=== PATIENT | female | born 1990 | race Caucasian/White ===

== ENCOUNTER → 2020-09-05 09:42 | Outpatient (BNVA) | payer SELFPAY | PROVIDERS: Family Provider Family Medicine; PCP Family Medicine; Visit Provider Nurse Practitioner Family | DX: R30.0 Dysuria (principal); R39.9 Unspecified symptoms and signs involving the genitourinary system | CPT/HCPCS: 81000 ==

== ENCOUNTER → 2020-10-01 16:32 | Outpatient (BNVA) | payer OTHER, SELFPAY | PROVIDERS: Family Provider Family Medicine; PCP Family Medicine; Visit Provider Emergency Medicine | DX: Z20.828 Contact with and (suspected) exposure to other viral communicable diseases (principal); R68.89 Other general symptoms and signs; R11.0 Nausea | CPT/HCPCS: 87635 ==

== ENCOUNTER → 2020-11-20 09:58 | Outpatient (BNVA) | payer OTHER, SELFPAY | PROVIDERS: Family Provider Family Medicine; PCP Family Medicine; Visit Provider Nurse Practitioner Family | DX: Z20.828 Contact with and (suspected) exposure to other viral communicable diseases (principal) | CPT/HCPCS: 87635 ==

== ENCOUNTER → 2021-09-25 11:52 | Outpatient (BNVA) | payer MEDICAID, SELFPAY | PROVIDERS: Family Provider Family Medicine; PCP Family Medicine; Visit Provider Emergency Medicine | DX: J02.9 Acute pharyngitis, unspecified (principal) | CPT/HCPCS: 87071; 87880 ==

== ENCOUNTER 2021-09-28 09:24 | Emergency (ER) | payer MEDICAID, OTHER, SELFPAY ==
[2021-09-28 09:31] VITALS: BP 152/90; PULSE 77; RESP 19; TEMP 37; O2SAT 99; BMI 32.5
[2021-09-28 10:07] VITALS: BP 125/74; PULSE 87; RESP 18; O2SAT 98
[2021-09-28 10:18] LABS: Add Urine Microscopic? NO; Charge for UA Resulting for Rev
[2021-09-28 10:21] LABS: Basophils # 0.1 10^3/uL (0.0-0.1); Basophils % 0.6 %; Eosinophils # 0.1 10^3/uL (0.0-0.8); Eosinophils % 0.7 %; Hematocrit 45.7 % (37.0-47.0); Hemoglobin 14.8 g/dL (11.5-15.3); Lymphocytes # 2.2 10^3/uL (0.8-4.8); Mean Corpuscular HGB Conc 32.4 g/dL (30.0-36.0); Mean Corpuscular Hemoglobin 28.8 pg (28.0-34.0); Mean Corpuscular Volume 88.9 fl (81-99); Mean Platelet Volume 11.2 fL (7.4-10.4); Monocytes # 0.3 10^3/uL (0.2-0.9); Monocytes % 3.4 %; Neutrophils % 69.1 %; Nucleated Red Blood Cells % 0 %; Platelet Count 264 10^3/cmm (130-400); Red Blood Count 5.14 10^6/uL (4.1-5.3); Red Cell Distribution Width 12.8 % (12.1-15.1); White Blood Count 8.3 10^3/uL (4.0-10.0)
[2021-09-28 10:26] VITALS: BP 116/85; BP 126/89; BP 129/82; PULSE 107; PULSE 78; PULSE 97
[2021-09-28 10:29] LABS: Bilirubin Urine Neg (Negative); Blood Urine Neg (Negative); Glucose Urine UA Norm (Normal); HCG Qualitative Urine. Negative (Negative); Ketones Urine Negative (Negative); Leukocyte Esterase Urine Negative (Negative); Nitrate Urine Negative (Negative); Protein Urine Neg (Negative); Specific Gravity, Urine 1.005 (1.005-1.030); Urine Appearance Clear (CLEAR); Urine Color Straw (Yellow); Urobilinogen Urine Norm (Negative); pH Urine 7 (5-7)
[2021-09-28] MEDS: sodium chloride 0.9% 1,000 ML 999 ML IV (10:29)
[2021-09-28 10:44] LABS: Alanine Aminotransferase 10 U/L (0-33); Albumin Level 4.3 g/dL (3.5-5.2); Alkaline Phosphatase 67 IU/L (35-105); Aspartate Amino Transferase 10 U/L (0-32); Blood Urea Nitrogen 6 mg/dL (6-20); Calcium 8.7 mg/dL (8.5-10.5); Carbon Dioxide 22 mmol/L (22-29); Chloride 104 mmol/L (98-107); Creatine Phosphokinase 54 U/L (26-192); Globulin 2.9 g/dL (1.3-4.6); Glomerular Filtration Rate 117.4 mL/min (90-130); Glucose 113 mg/dL (65-115); Osmolality Calculated 286 mOsm/kg (285-295); Sodium 139 mmol/L (136-145); Total Bilirubin 0.4 mg/dL (0.15-1.2); Total Protein 7.2 g/dL (6.6-8.7)
--- NOTE | 2021-09-28 11:02 | ECG_ITS ---
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 Measurements Intervals [place] Rate: 99 P: 58 TN: 127 QRS: 60 QRSD: 86 T: 34 QT: 340 QTc: 438 Interpretive Statements SINUS RHYTHM MINIMAL ST DEPRESSION [0.025+ mV ST DEPRESSION] No previous ECG available for comparison Electronically Signed On 09-28-2021 17:02:40 DISPOSAL WORKER by Michelet Waterman M.D. [email or web address] Paymentsmer[facility]ison[facility] companyProBinder/store/NU/[id number] f
[2021-09-28 11:26] LABS: SARS Covid-2 Antigen Negative (Negative)
--- NOTE | 2021-09-28 11:28 | XR_ITS ---
WS: [id number] Exam: XR chest 1V portable [id number] Date/Time of Exam: 09/28/2021 11:33 AM Reason For Exam: dyspnea/cough No priors. Findings: The lungs are clear and fully expanded. Costophrenic angles are sharp. No infiltrates. Bronchovascula r relief appears normal. Cardiac silhouette is unremarkable. Bony elements are intact. XR/XR chest 1V portable [id number] IMPRESSION: Unremarkable chest radiograph.
--- NOTE | 2021-09-28 11:28 | ED_ITS ---
HPI - General Adult General: Chief complaint: General Medical Stated complaint: WEAKNESS/LIGHT HEADED Time Seen by Provider: 09/28/21 09:28 History of Present Illness: HPI narrative: 30-year-old female presents emergency room complaining initially of onset of sore throat and itching ears. 3 days ago went to primary care doctor with persistent symptoms including diarrhea nausea reflux generalized weakness subjective fever and cough that had worsened significantly from the original symptoms back around [facility]. They were started on Zithromax. She continues to generally not feel well. Diarrhea has started to slow down already. She not previously had Covid that she knows of nor has she been immunized. Onset (ago): day(s) Location: chest (Congestion cough) Severity: mild Relieving factors: none Exacerbating factors: none Associated symptoms: Reports cough, decreased appetite, dyspnea, fevers/chills, headache(s), malaise, nausea, short of breath and weakness; Deny chest pain, confusion, diaphoresis, rash, palpitations, seizures, syncope or vomiting Treatments prior to arrival: other (Azithromycin) Review of Systems Const: Reports: malaise; Denies: diaphoresis ENMT: Denies: throat pain, ear or mastoid pain, nasal discharge or nasal congestion Card: Denies: chest pain, palpitations or syncope Resp: Reports: dyspnea GI: Reports: nausea; Denies: vomiting : Denies: flank pain, difficulty voiding, dysuria, urinary frequency or urinary urgency Skin/Breast: Denies: rash Neuro: Reports: headache(s); Denies: confusion PFSH ED PFSH: Family History Other Diabetes Hypertension Stroke Denies family history of CAD (coronary artery disease) Chronic kidney disease (CKD) Social History Smoking and tobacco status: current every day smoker cigarettes Packs smoked per day: 0.5 Quit status (tobacco): not considering quitting Second hand smoke exposure: Yes Alcohol intake: current Alcohol intake frequency: holidays/special occasions only Desire information about alcohol rehabilitation?: No Desire information about substance/drug rehabilitation?: No History of recent travel: No Current gender identity: Female Physical Exam Const: COMMON NORMALS: no acute distress GENERAL APPEARANCE: cooperative and comfortable ORIENTATION/CONSCIOUSNESS: Yes awake, Yes oriented to person, Yes oriented to place and Yes oriented to time HENMT: COMMON NORMALS: normocephalic, atraumatic and hearing grossly normal bilaterally HEAD & SCALP: normocephalic and atraumatic Neck/C-Spine: COMMON NORMALS: full ROM, no lymphadenopathy, supple and no JVD Resp: COMMON NORMALS: normal respiratory effort, No retractions, No use of accessory muscles and clear to auscultation bilaterally AUSCULTATION: clear to auscultation bilaterally Cardio: COMMON NORMALS: no JVD, regular rate, regular rhythm and No murmurs present (Cardio) RATE: regular rate RHYTHM: regular rhythm GI: COMMON NORMALS: Soft to palpation and No hepatosplenomegaly present AUSCULTATION: Yes normoactive bowel sounds PALPATION: Yes Soft to palpation, No Tenderness to palpation present (GI), No Guarding due to palpation present (GI) and Yes No hepatosplenomegaly present Extremity: COMMON NORMALS: normal to inspection, capillary refill normal, no clubbing, cyanosis or edema, no calf tenderness and no pedal edema Neuro: SENSORIUM/ORIENTATION: Yes oriented to person, Yes oriented to place and Yes oriented to time Skin: COMMON NORMALS: no rashes or lesions noted GENERAL SKIN EXAM: no rashes or lesions noted Course Vital Signs: Vital signs: Vital Signs Temperature 98.6 F 09/28/21 09:31 Pulse Rate 67 09/28/21 12:26 Respiratory Rate 18 09/28/21 12:26 Blood Pressure 134/71 09/28/21 12:26 Pulse Oximetry 98 09/28/21 12:26 MDM - General Adult MDM Narrative: Medical decision making narrative: Labs and imaging reviewed. Clinically suspect she does have Covid. Waiting for the PCR. Recommend discharge home with albuterol and Medrol Dosepak. She declined Medrol Dosepak says it causes anxiety issues. She has been using Benadryl at at bedtime for sleep recommended she probably instead use cetirizine for allergy symptoms discussed with her primary care something else for sleep. She had asked about continuing to use Benadryl using more often for the symptoms would not recommend that at this time. Any worsening problems return to the emergency room. Lab Data: Labs: Lab Results 09/28/21 09/28/21 09/28/21 09:50 09:50 10:01 WBC 8.3 10^3/uL 10^3/ uL (4.0-10.0) RBC 5.14 10^6/uL 10^6 /uL (4.1-5.3) Hgb 14.8 g/dL g/dL (11.5-15.3) Hct 45.7 % % (37.0-47.0) MCV 88.9 fl fl (81-99) MCH 28.8 pg pg (28.0-34.0) MCHC 32.4 g/dL g/dL (30.0-36.0) RDW 12.8 % % (12.1-15.1) Plt Count 264 10^3/cmm 10^3 /cmm (130-400) MPV 11.2 fL H fL (7.4-10.4) Neut % (Auto) 69.1 % % Lymph % (Auto) 26.0 % % [place] % (Auto) 3.4 % % Eos % (Auto) 0.7 % % Baso % (Auto) 0.6 % % Neut # (Auto) 5.70 10^3/uL 10^3 /uL (1.8-7.7) Lymph # (Auto) 2.2 10^3/uL 10^3/ uL (0.8-4.8) [place] # (Auto) 0.3 10^3/uL 10^3/ uL (0.2-0.9) Eos # (Auto) 0.1 10^3/uL 10^3/ uL (0.0-0.8) Baso # (Auto) 0.1 10^3/uL 10^3/ uL (0.0-0.1) Nucleated RBC % (a uto) 0 % % Nucleated RBCs # 0.0 /100WBC /100W BC Sodium Potassium Chloride Carbon Dioxide Anion Gap BUN Creatinine GFR Calculation Glucose Calculated Osmolal ity Calcium Total Bilirubin AST ALT Alkaline Phosphata se Creatine Kinase Total Protein Albumin Globulin HCG, Qual Negative (Negative) Urine Color Straw (Yellow) Urine Appearance Clear (CLEAR) Urine pH 7 (5-7) Ur Specific Gravit y 1.005 (1.005-1.030) Urine Protein Neg (Negative) Urine Glucose (UA) Norm (Normal) Urine Ketones Negative (Negative) Urine Blood Neg (Negative) Urine Nitrate Negative (Negative) Urine Bilirubin Neg (Negative) Urine Urobilinogen Norm mg/dL mg/dL (Negative) Ur Leukocyte [place] ase Negative (Negative) SARS-CoV-2 Ag (Rap id) 09/28/21 09/28/21 10:01 10:30 WBC RBC Hgb Hct MCV MCH MCHC RDW Plt Count MPV Neut % (Auto) Lymph % (Auto) [place] % (Auto) Eos % (Auto) Baso % (Auto) Neut # (Auto) Lymph # (Auto) [place] # (Auto) Eos # (Auto) Baso # (Auto) Nucleated RBC % (a uto) Nucleated RBCs # Sodium 139 mmol/L mmol/L (136-145) Potassium 4.0 mmol/L mmol/L (3.5-5.1) Chloride 104 mmol/L mmol/L (98-107) Carbon Dioxide 22 mmol/L mmol/L (22-29) Anion Gap 17.0 (5-19) BUN 6 mg/dL mg/dL (6-20) Creatinine 0.6 mg/dL mg/dL (0.5-0.9) GFR Calculation 117.4 mL/min mL/m in (90-130) Glucose 113 mg/dL mg/dL (65-115) Calculated Osmolal ity 286 mOsm/kg mOsm/ kg (285-295) Calcium 8.7 mg/dL mg/dL (8.5-10.5) Total Bilirubin 0.4 mg/dL mg/dL (0.15-1.2) AST 10 U/L U/L (0-32) ALT 10 U/L U/L (0-33) Alkaline Phosphata se 67 IU/L IU/L (35-105) Creatine Kinase 54 U/L U/L (26-192) Total Protein 7.2 g/dL g/dL (6.6-8.7) Albumin 4.3 g/dL g/dL (3.5-5.2) Globulin 2.9 g/dL g/dL (1.3-4.6) HCG, Qual Urine Color Urine Appearance Urine pH Ur Specific Gravit y Urine Protein Urine Glucose (UA) Urine Ketones Urine Blood Urine Nitrate Urine Bilirubin Urine Urobilinogen Ur Leukocyte [place] ase SARS-CoV-2 Ag (Rap id) Negative (Negative) Discharge Plan Discharge Patient Disposition: Home Clinical Impression: Viral URI with cough Condition: Stable Prescriptions: New Medrol (Delvis) 4 mg tablets,dose pack See Rx Instructions .ROUTE .COMPLEX Qty: 21 RF: 0 No Action [id number] [Bromfed DM] 2-30-10 mg/5 mL syrup 7.5 ml PO Q6H PRN (Reason: cold symptoms) Qty: 160 RF: 0 Benadryl 25 mg Capsule 25 mg PO BEDTIME PRN (Reason: Sleep) RF: 0 ibuprofen 200 mg Tablet 400 mg PO BEDTIME PRN (Reason: Pain) RF: 0 albuterol sulfate 90 mcg/actuation Hfa Aerosol Inhaler 2 puff inhalation Q6H PRN (Reason: Shortness Of Breath) RF: 0 Mirena 20 mcg/24 hours (6 yrs) 52 mg Intrauterine Device See Rx Instructions .ROUTE .COMPLEX RF: 0 azithromycin 250 mg tablet See Rx Instructions PO .COMPLEX RF: 0 Discharge Orders: Discharge ED (Routine); Ordered 09/28/21 Ordered By: Festus Guzman Discharge Diet: Usual diet Discharge Activity: Increase activity as tolerated Patient Instructions: Opioid Safety Coding Level of Care Code ED Revenue Integrity Analyst for Jacob Fwd Exam Comprehensive
[2021-09-28 12:26] VITALS: BP 134/71; PULSE 67; RESP 18; O2SAT 98
[2021-09-29 14:15] LABS: Coronavirus Test Green County Not Detected
--- NOTE | 2021-09-30 15:47 | PC.NURSE ---
Patient notified of negative COVID-19 test result
== END 2021-09-28 12:17 | disposition home or self-care (01) ==
PROVIDERS: Emergency Provider Family Medicine
DX: J06.9 Acute upper respiratory infection, unspecified (principal); F17.210 Nicotine dependence, cigarettes, uncomplicated; Z20.822 Contact with and (suspected) exposure to COVID-19
CPT/HCPCS: 71045; 80053; 81003; 81025; 82550; 85025; 87426; 87635; 93005; 96360; 99283; J7030

== ENCOUNTER → 2021-12-26 10:30 | Outpatient (BNVA) | payer MEDICAID, SELFPAY | PROVIDERS: Visit Provider Emergency Medicine | DX: J02.9 Acute pharyngitis, unspecified (principal); J01.90 Acute sinusitis, unspecified; B96.89 Other specified bacterial agents as the cause of diseases classified elsewhere | CPT/HCPCS: 87071; 87880 ==

== ENCOUNTER → 2022-05-01 16:38 | Outpatient (BNVA) | payer MEDICAID, SELFPAY | PROVIDERS: Visit Provider Emergency Medicine | DX: J06.9 Acute upper respiratory infection, unspecified (principal); J02.9 Acute pharyngitis, unspecified | CPT/HCPCS: 87071; 87880 ==

== ENCOUNTER → 2022-05-22 10:24 | Outpatient (BNVA) | payer MEDICAID, SELFPAY | PROVIDERS: PCP Family Medicine; Visit Provider Emergency Medicine | DX: J02.9 Acute pharyngitis, unspecified (principal); R09.82 Postnasal drip | CPT/HCPCS: 87071; 87880 ==

== ENCOUNTER → 2022-09-07 09:19 | Outpatient (BNVA) | payer MEDICAID, SELFPAY | PROVIDERS: PCP Family Medicine; Visit Provider Nurse Practitioner Family | DX: J02.9 Acute pharyngitis, unspecified (principal); J02.0 Streptococcal pharyngitis | CPT/HCPCS: 87071; 87880 ==

== ENCOUNTER → 2023-07-22 09:56 | Outpatient (BNVA) | payer MEDICAID, SELFPAY | PROVIDERS: PCP Family Medicine; Visit Provider Emergency Medicine | DX: M25.511 Pain in right shoulder (principal); M77.11 Lateral epicondylitis, right elbow | CPT/HCPCS: 73030 ==

== ENCOUNTER → 2024-03-26 08:50 | Outpatient (BNVA) | payer MEDICAID, SELFPAY | PROVIDERS: PCP Family Medicine; Visit Provider Podiatrist Foot & Ankle Surgery | DX: M79.671 Pain in right foot (principal); M76.821 Posterior tibial tendinitis, right leg | CPT/HCPCS: 73610; 73630 ==

== ENCOUNTER → 2024-04-13 09:22 | Outpatient (BNVA) | payer MEDICAID, SELFPAY | PROVIDERS: PCP Family Medicine; Referring Provider Nurse Practitioner Family; Visit Provider Physician Assistant | DX: G56.01 Carpal tunnel syndrome, right upper limb | CPT/HCPCS: 73080 ==

== ENCOUNTER → 2024-05-11 10:29 | Outpatient (BNVA) | payer MEDICAID, SELFPAY | PROVIDERS: PCP Nurse Practitioner Family; Visit Provider Obstetrics & Gynecology | DX: Z30.431 Encounter for routine checking of intrauterine contraceptive device (principal); R10.2 Pelvic and perineal pain; N83.201 Unspecified ovarian cyst, right side | CPT/HCPCS: 76830 ==

== ENCOUNTER 2024-06-27 10:43 | Day surgery (SDC) | payer MEDICAID, SELFPAY ==
[2024-06-27] VITALS (7 sets, daily range): BP systolic 92–135; BP diastolic 69–93; PULSE 62–85; RESP 12–16; TEMP 3.2–37.8; O2SAT 90–97
[2024-06-27 12:20] LABS: OR HCG Qualitative Urine Negative (Negative)
--- NOTE | 2024-06-27 12:40 | P.ANESASSM_ITS ---
Pre-Anesthetic Assessment Height/Weight: Height 5 ft 1 in Operation Date: 06/27/24 13:05 Proposed Procedures p Carpal Tunnel Release(Right) - Nick Pinal, DO s [place] Release(Right) - Nick Pinal, DO s Cubital Tunnel Release(Right) - Nick Jorden, DO s possible Ulnar Nerve Transposition(Right) - Nick Pinal, DO Social Tobacco and No alcohol Exam alert, oriented x 3, clear to auscultation bilaterally and regular rate & rhythm Airway Submandibular: within normal limits Cervical ROM: within normal limits Mallampati: Class III Dentition: other (Poor dentition) Anesthetic Plan ASA status: 2 Anesthesia: MAC Other: No prior issues with anesthesia NPO since midnight Current smoker, no inhalers Denies any cardiac history test negative Prior EKG showing sinus rhythm Peripheral nerve block discussed including complications. Patient is concerned about possible phrenic block and decreased sensation of taking a deep breath. However, patient would like to proceed with peripheral nerve block at this time. Plan for MAC anesthesia with PNB Medications/Allergies Home Medications Medication Instructions Recorded Confirmed Last Taken Type ibuprofen 200 mg tablet 400 mg PO BEDTIME PRN Pain 09/28/21 06/26/24 Unknown History levonorgestrel 21 mcg/24 hr (up to See Rx Instructions .Route .COMPLEX 09/28/21 06/26/24 07/24/17 History 8 years) 52 mg intrauterine device (Mirena) ibuprofen 600 mg tablet 600 mg PO Q8H PRN pain #30 tabs 05/01/22 06/26/24 Unknown Rx bupropion HCl 150 mg tablet,12 hr 150 mg PO DAILY 07/22/23 06/26/24 Unknown History sustained-release (Wellbutrin SR) hydroxyzine HCl 10 mg tablet 10 mg PO TID PRN Pain 07/22/23 06/26/24 06/25/24 History fluticasone propionate 50 2 spray intranasal DAILY 06/27/24 06/27/24 06/27/24 History mcg/actuation nasal spray,suspension ondansetron 4 mg disintegrating 4 mg PO Q8H PRN nausea and 06/27/24 Unknown Rx tablet vomiting 3 days #9 tabs tramadol 50 mg tablet 50 mg PO Q6H PRN pain #20 tabs 06/27/24 Unknown Rx Allergies Allergy/AdvReac Type Severity Reaction Status Date / Time hydrocodone Allergy Mild ALGY-HIVES Verified 05/10/24 14:16 Penicillins Allergy Mild ALGY-HIVES Verified 05/10/24 14:16 clindamycin Allergy Unknown Verified 05/10/24 14:16 [facility] Anesthesia Family History Other Diabetes Hypertension Stroke Denies family history of CAD (coronary artery disease) Chronic kidney disease (CKD) Social History Smoking and tobacco/nicotine status: current every day tobacco/nicotine user cigarettes Packs smoked per day: 0.5 Quit status (tobacco/nicotine): not considering quitting Second hand smoke exposure: Yes Alcohol intake: current Alcohol intake frequency: holidays/special occasions only Substance/Drug Use: never Current gender identity: Female Female Reproductive History Spontaneous abortions: No Data Anesthesia Cardiac Studies: No Data to Display
[2024-06-27] MEDS: sodium chloride 0.9% 1,000 ML 30 ML IV (12:44)
[2024-06-27] MEDS: ketorolac 30 mg/mL INJ IVP (12:46)
[2024-06-27] MEDS: acetaminophen 1,000 MG/100 ML PIGGYBACK 400 MG IV (12:46)
[2024-06-27] MEDS: scopolamine 1.5 Patch 1 PATCH TRANSDERMA (12:49)
[2024-06-27] MEDS: vancomycin 1,500 MG/300 ML PIGGYBACK 200 MG IV (12:52)
--- NOTE | 2024-06-27 13:00 | W.PM.OPSFHP ---
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 Guyon[place] canal PREOP DIAGNOSIS: Right carpal tunnel syndrome, cubital tunnel syndrome, right ulnar ne PLANNED PROCEDURE: Operation Date: 06/27/24 13:05 Proposed Procedures p Carpal Tunnel Release(Right) - Nick Wilbarger, DO s [place] Release(Right) - Nick Wilbarger, DO s Cubital Tunnel Release(Right) - Nick Jorden, DO s possible Ulnar Nerve Transposition(Right) - Nick Wilbarger, DO Medications/Allergies* Home Medications Medication Instructions Recorded Confirmed Type ibuprofen 200 mg tablet 400 mg PO BEDTIME PRN Pain 09/28/21 06/26/24 History levonorgestrel 21 mcg/24 hr (up to See Rx Instructions .Route .COMPLEX 09/28/21 06/26/24 History 8 years) 52 mg intrauterine device (Mirena) bupropion HCl 150 mg tablet,12 hr 150 mg PO DAILY 07/22/23 06/26/24 History sustained-release (Wellbutrin SR) hydroxyzine HCl 10 mg tablet 10 mg PO TID PRN Pain 07/22/23 06/26/24 History fluticasone propionate 50 2 spray intranasal DAILY 06/27/24 06/27/24 History mcg/actuation nasal spray,suspension Allergies/Adverse Reactions Allergy/AdvReac Type Severity Reaction Status Date / Time hydrocodone Allergy Mild ALGY-HIVES Verified 05/10/24 14:16 Penicillins Allergy Mild ALGY-HIVES Verified 05/10/24 14:16 clindamycin Allergy Unknown Verified 05/10/24 14:16 Current Medications: Generic Name Dose Route Start Last Admin Trade Name Freq PRN Reason Stop Dose Admin Vancomycin HCl 1,500 mg in 300 mls @ 200 mls/hr 06/27/24 12:10 06/27/24 12:52 Vancocin IV 06/27/24 13:39 200 mls/hr ONCE ONE Administration Protocol Sodium Chloride 1,000 mls @ 30 mls/hr 06/27/24 12:30 06/27/24 12:44 Sodium Chloride 0.9% IV 30 mls/hr .Q24H PADMINI Administration Pertinent History/Comorbid Conditions* Family History (Updated 02/23/20 @ 09:16 by Poala English LPN) Diabetes Hypertension Stroke Denies family history of CAD (coronary artery disease) Chronic kidney disease (CKD) Social History Smoking and tobacco/nicotine status: current every day tobacco/nicotine user cigarettes Packs smoked per day: 0.5 Quit status (tobacco/nicotine): not considering quitting Second hand smoke exposure: Yes Alcohol intake: current Alcohol intake frequency: holidays/special occasions only Substance/Drug Use: never Current gender identity: Female Pertinent Exam Findings alert, oriented x 3, operative site marked and procedure specific exam findings Please refer to detailed orthopedic examination on 05/10/2024 listed below: bilateral Hand exam-positive Tinel's and positive Phalen's test. She has no thenar atrophy and no thenar muscle weakness. Full range of motion in fingers and wrist and fingers are warm and well-perfused with normal cap refill under 2 seconds. Radial pulse 2+, no intrinsic muscle weakness noted. Right Elbow exam-Positive Tinel's test Left Elbow exam- positive Tinel's test Patient's examination of the right upper extremity was performed by myself patient does have positive Tinel's over the elbow as well as positive elbow flexion test does have positive Tinel's over the carpal tunnel as well as over Guyon's canal as well as exacerbating symptoms with median nerve compression test at the wrist as well as ulnar nerve compression test over Guyon's canal. Patient does have early thenar weakness and subtle intrinsic weakness appreciated on examination but no atrophy noted. Recommendations Surgery/Procedure today Other Plans: Plan to proceed to the OR today for right carpal tunnel release, right wrist Guyon's canal release, right cubital tunnel release with possible nerve transposition. Patient understands the ins and outs procedure the risk benefits complication alternatives of surgery and through shared decision make elects proceed with surgical intervention. All questions answered at this time. Will proceed to the OR today. Coding Level of Care Code Acute Code for Jacob Wallace
--- NOTE | 2024-06-27 13:16 | ANES.PROC ---
Anesthesia Procedures Procedure/Date: 06/27/24 Nerve Block ^: Nerve Block 1: Main Anesthesia: other Time Out Performed: Yes Consent: requested by attending/covering physician and from patient Nerve block location: supraclavicular Anesthesia monitors applied: pulse oximetry, EKG, BP cuff and oxygen Nerve block position: supine Anesthetic Used: ropivicaine 0.5% Amount of anesthesia used (mL): 25 Ultrasound used to: recognize landmarks and in supraclavicular region Nerve Stimulator Used?: Yes Interscalene/Femoral BLK: other needle (pjunk) Injection: neg aspiration of heme Patient Tolerated Procedure: well Complications: none Additional Comments: decadron 4mg added
[2024-06-27] MEDS: ROPivacaine 0.5% SDV 30 mL 50 MG INJECTION (14:01)
[2024-06-27] MEDS: lidocaine-epi 1% 20 mL INJ 10 ML INJECTION (14:01)
--- NOTE | 2024-06-27 14:43 | P.BOP_ITS ---
Date of Procedure: 06/27/2024 Surgeon: Nick Leonardo DO Snath Handle Assembler(s): Deon Leonardo PA-C Procedure(s) performed: Right carpal tunnel release Right cubital tunnel release Right ulnar nerve release at the wrist (Guy[place]'s canal release) Findings of the procedure(s): Patient is found to have ulnar nerve entrapment at the wrist and elbow as well as right carpal tunnel syndrome. Patient underwent procedure as planned without issues or complications placed in a volar splint to protect the wrist incision with a soft dressing to the elbow taken to PACU in stable condition will follow-up in 2 weeks. 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
--- NOTE | 2024-06-27 14:47 | P.OP_ITS ---
Operative Report Date of procedure: June 27, 2024 Surgeon: Nick Leonardo DO Memorial Designer: Deon Leonardo PA-C: PA was necessary for assistance in this case with hand positioning to execute the procedure, retraction and protection of neurovascular structures as well as to assist with wound closure and dressing application. Procedure: Preoperative diagnosis? Right? 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 45 minutes IV fluids: 800mL Complications: None Findings: See operative report narrative Condition: stable Disposition: same day Brief History: Patient's been seen and worked up in the outpatient setting and findings consistent with preoperative diagnosis.? Patient has? Right Carpal Tunnel Syndrome,Right ulnar entrapment at?guyons?canal, Right cubital tunnel syndrome? which has been worked up in the outpatient setting has physical exam findings consistent with this.? Patient's nerve study from previous outside facility was allegedly read as normal.? Exam findings consistent with preoperative diagnosis.? Patient's failed conservative treatment.? As result through shared decision making agreed to proceed with Right carpal tunnel release , Right ulnar nerve release at the wrist (guyons canal) and Right cubital tunnel release. We talked about tx options as nonoperative and operative intervention.? Understands risk benefits complication alternatives surgical nonsurgical treatment options.? Understanding? risks pt agrees to proceed with surgical intervention. Consent obtained. Procedure: Patient seen evaluate in the preoperative holding area.? Consent was reviewed and signed with patient.? Correct extremity marked.? Patient seen evaluated by anesthesia department once cleared for surgery was then taken back to the operative suite placed in supine position all bony prominences well-padded patient properly secured to bed.? Right upper extremity placed onto armboard.? Nonsterile tourniquet applied Right upper arm.? Patient then underwent anesthesia per the anesthesia department.? Patient's Right upper extremity was then prepped and draped in standard orthopedic fashion.? Final timeout performed.? Patient received appropriate preoperative antibiotics. Esmarch was used exsanguinate the Right upper extremity.? Tourniquet was insufflated to 250 mmHg. I started with my release of the ulnar nerve at the wrist.? An extensive laterally based palmar incision that extended proximal past the wrist crease with a Alyx incision was made directly over?Guyon's canal.? At this point in time incision was made between the Pisa form and hamate to follow neurovascular bundle of?Guyon's canal.? sharp scalpel incision was subsequently made through skin and then I switched to Littler dissection scissors.? At this point in time I dissected down over top?guyons?canal release the brevis muscle belly along the hypothenar region to obtain access into?Guyon's canal.? Thick band of fascia was noted proximally just proximal to the wrist crease this was released and made sure there was complete decompression of the ulnar nerve proximally just prior to?Guyon's canal subsequently released?guyon?canal and direct visualization with sharp scalpel excision as well as Littler dissection scissors with care utilizing my anesthetic assistant to protect the neurovascular bundle.? At this point in time I continued to perform release of the fascia/the roof of?Guyon's canal all the way to its most distal extent and the nerve was found to be completely free and untethered.? I then in order to perform release of the deep motor branch I then mobilized my dissection around the ulnar nerve and identified the deep motor branch as it courses towards the underneath fascia connected with the hamate.? I then utilized dissection scissors and under direct visualization completed my release carefully of the fascial bands tethering over top of the deep motor branch.? At this point in time the ulnar nerve was completely decompressed through?Guyon's canal and? ulnar nerve had complete laxity with no areas of entrapment or tethering. No masses were noted within the contents of the?guyons?canal.? This completed the ulnar nerve release at the wrist. Next I then subsequently visualized from the ulnar aspect of the carpal tunnel.? Identified the distal extent as well as proximal extent into the antebrachial fascia.? As result approaching the carpal tunnel from the ulnar position just above the hook of the hamate made an incision through thickened Transverse carpal ligament.? It was noted there was significant entrapment of the median nerve.? I then switched to Littler dissection scissors to complete my dissection and release distally with care to protect neurovascular structures distally.? The tendons were healthy within the carpal tunnel.? No masses were noted.? I then carried my dissection proximally utilizing retraction by my anesthetic assistant as well as direct visualization with loupe magnification identify the proximal extent of the carpal tunnel and release this to its entirety as well as identified the median nerve and released the tethering of the antebrachial fascia proximally past the wrist crease into the distal aspect of the forearm with no further evidence of median nerve entrapment.? The median nerve overall showed signs of compression and inflammation irritation but overall appeared healthy.?? Next marked out the landmarks of the Right elbow of the medial epicondyle and olecranon and made a curvilinear incision following the course of the ulnar nerve at the medial aspect of the elbow.? Sharp scalpel incision was made through skin and subcutaneous tissue.? Next I switched to Littler dissection scissors and spread in plane of the medial antebrachial cutaneous nerve branching which was protected throughout this part of the dissection.? Then I directly came down over the fascia and identified the 2 heads of the FCU fascia and split this in the middle and subsequently identified ulnar nerve distally.? This was then completely released distally under direct visualization and loupe magnification.? Once the nerve was then identified I then subsequently tracked this proximally and released this through Renner's ligament as well as complete decompression of the nerve proximally all the way past the intermuscular septum.? The nerve was completely released and decompressed both proximally and distally.? Ulnar nerve neurolysis performed and completed both proximally and distally with dissection scissors.? I then took the elbow through range of motion and there was no instability or subluxating of the ulnar nerve.? This completed?cubital?tunnel release.? ?Next the wound bed was thoroughly irrigated.? Tourniquet was deflated.? Hemostasis was satisfactory.? ?The incision was then closed in standard interrupted mattress fashion.? Dressing was Xeroform 4 x 4's ABD Curlex soft roll and an Shaan wrap has a bulky soft dressing and volar splint.? Patient was then awakened from anesthesia and taken to PACU in stable condition. Disposition: Patient taken to PACU in stable condition recovering well.? Patient will receive appropriate discharge instructions as well as pain medication postoperatively.? We will follow-up with me in the office in 2 weeks.? Patient understands agrees with current plan.? All questions answered.? pt understands if any questions or concerns and contact the office for follow-up appointment.
--- NOTE | 2024-06-27 14:54 | P.PCN_ITS ---
PACU note Narrative: Patient is a 33-year-old female that just underwent a right carpal tunnel release and right Guyon's canal release and right cubital tunnel release. Patient transferred to PACU in stable condition. Pain is well controlled. Dressing on hand is dry and in place. Patient's fingers are warm and well- perfused. normal cap refill under 2 seconds. Unable to assess sensation and motor due to residual block. Exam: awake Disposition: discharged
--- NOTE | 2024-06-27 15:40 | ANE.PACU2 ---
Inpatient post-anesthesia follow up: Airway intact: Yes Vital signs: Temperature 97.2 F Pulse Rate 72 Respiratory Rate 16 Blood Pressure 135/90 Pulse Oximetry 96 Oxygen Delivery Me thod Room Air Oxygen Flow Rate 6 Fraction of Inspir ed Oxygen Hydration adequate: Yes Nausea and vomiting: No Pain level: 1 Mental status: Baseline
== END 2024-06-27 15:40 | disposition home or self-care (01) ==
PROVIDERS: Student in an Organized Health Care Education/Training Program; PCP Nurse Practitioner Family; Visit Provider Student in an Organized Health Care Education/Training Program
PROC: (CPT 64721; principal; 2024-06-27 13:05)
PROC: (CPT 64719; 2024-06-27 13:05)
PROC: (CPT 64718; 2024-06-27 13:05)
DX: G56.01 Carpal tunnel syndrome, right upper limb (principal); G56.21 Lesion of ulnar nerve, right upper limb; F17.210 Nicotine dependence, cigarettes, uncomplicated
CPT/HCPCS: 64718; 64719; 64721; 81025; J0131; J1885; J2704; J2795; J3010; J3370; J7030

== ENCOUNTER 2024-12-15 11:42 | Emergency (ER) | payer MEDICAID, SELFPAY ==
[2024-12-15 11:47] VITALS: BP 136/81; PULSE 113; RESP 16; TEMP 36.8; O2SAT 96; BMI 41.5
--- NOTE | 2024-12-15 12:57 | W.ED.BACK ---
HPI - Back Pain/Injury General: Chief Complaint: Back Pain/Injury Stated Complaint: back pain / adm. pain Time Seen by Provider: 12/15/24 12:55 History of Present Illness: 34-year-old female presents emergency room with complaint of back pain radiating down into the lower abdomen. Its mostly on her right side. It began after she fell a few days ago she had to strain her back had some discomfort adjacent your primary care doctor was given medications that seem to be improving now she is having more discomfort again. She is able to move around no radiation of pain into her lower extremities no fecal incontinence or urinary retention. No other trauma Associated symptoms: Reports abdominal pain; Deny chills, dysuria, fever(s) or urinary urgency Related Data Home Medications ?Medication ?Instructions ?Recorded ?Confirmed ibuprofen 200 mg tablet 400 mg PO BEDTIME PRN Pain 09/28/21 12/01/24 levonorgestrel 21 mcg/24 hr (up to See Rx Instructions .Route .COMPLEX 09/28/21 12/01/24 8 years) 52 mg intrauterine device (Mirena) hydroxyzine HCl 10 mg tablet 10 mg PO TID PRN Pain 07/22/23 12/01/24 fluticasone propionate 50 2 spray intranasal DAILY 06/27/24 12/01/24 mcg/actuation nasal spray,suspension bupropion HCl 150 mg 24 hr tablet, mg PO 09/28/24 12/01/24 extended release metformin 500 mg tablet mg PO 09/28/24 12/01/24 Previous Rx's ?Medication ?Instructions ?Recorded ibuprofen 600 mg tablet 600 mg PO Q8H PRN pain #30 tabs 05/01/22 Allergies Allergy/AdvReac Type Severity Reaction Status Date / Time hydrocodone Allergy Mild ALGY-HIVES Verified 09/28/24 09:34 Penicillins Allergy Mild ALGY-HIVES Verified 09/28/24 09:34 clindamycin Allergy Unknown Verified 09/28/24 09:34 Review of Systems Const: Denies: fever(s) or chills Card: Denies: chest pain Resp: Denies: dyspnea GI: Reports: abdominal pain : Denies: dysuria, urinary frequency or urinary urgency Musc: Reports: back pain; Denies: neck pain Skin/Breast: Denies: rash PFSH ED PFSH: Family History Other Diabetes Hypertension Stroke Denies family history of CAD (coronary artery disease) Chronic kidney disease (CKD) Social History Smoking and tobacco/nicotine status: never used tobacco/nicotine Quit status (tobacco/nicotine): not considering quitting Second hand smoke exposure: Yes Alcohol intake: current Alcohol intake frequency: holidays/special occasions only Substance/Drug Use: never Current gender identity: Female Female Reproductive History: Spontaneous abortions: No Physical Exam Const: COMMON NORMALS: no acute distress GENERAL APPEARANCE: cooperative and comfortable ORIENTATION/CONSCIOUSNESS: Yes awake, Yes oriented to person, Yes oriented to place and Yes oriented to time HENMT: COMMON NORMALS: normocephalic, atraumatic and hearing grossly normal bilaterally HEAD & SCALP: normocephalic and atraumatic Resp: COMMON NORMALS: normal respiratory effort, No retractions, No use of accessory muscles and clear to auscultation bilaterally AUSCULTATION: clear to auscultation bilaterally Cardio: COMMON NORMALS: regular rate, regular rhythm and No murmurs present (Cardio) RATE: regular rate RHYTHM: regular rhythm GI: COMMON NORMALS: Soft to palpation and No hepatosplenomegaly present AUSCULTATION: Yes normoactive bowel sounds PALPATION: Yes Soft to palpation, No Tenderness to palpation present (GI), No Guarding due to palpation present (GI) and Yes No hepatosplenomegaly present Extremity: COMMON NORMALS: normal to inspection, capillary refill normal, no clubbing, cyanosis or edema, no calf tenderness and no pedal edema Neuro: SENSORIUM/ORIENTATION: Yes oriented to person, Yes oriented to place and Yes oriented to time Skin: COMMON NORMALS: no rashes or lesions noted GENERAL SKIN EXAM: no rashes or lesions noted Course Vital Signs: Vital signs: Vital Signs Temperature 98.3 F 12/15/24 11:47 Pulse Rate 70 12/15/24 15:22 Respiratory Rate 16 12/15/24 11:47 Blood Pressure 94/63 12/15/24 15:22 Pulse Oximetry 99 12/15/24 15:22 Oxygen Delivery Me thod Room Air 12/15/24 13:22 MDM - Back Pain/Injury Medical Decision Making Abdominal exam is benign patient mentioned she is having some dysuria with UA does not show any signs of infection white count normal repeat abdominal exam benign. Reviewed findings with the patient we will discharge her home continue to use medication as previously prescribed if has any further problems return to the emergency room Medical Records I reviewed the patient's medical records. Labs I reviewed the patient's lab results. 12/15/24 13:21 12/15/24 13:21 Laboratory Results WBC 9.11 10^3/uL (3.29-11.43) 12/15/24 13:21 RBC 4.81 10^6/uL (3.85-5.65) 12/15/24 13:21 Hgb 13.90 g/dL (11.27-16.99) 12/15/24 13:21 Hct 42.1 % (36-47) 12/15/24 13:21 MCV 87.5 fl (85-98) 12/15/24 13:21 MCH 28.9 pg (27-33) 12/15/24 13:21 MCHC 33.0 g/dL (30-55) 12/15/24 13:21 RDW 13.2 % (12.1-15.1) 12/15/24 13:21 Plt Count 288 10^3/cmm (157-399) 12/15/24 13:21 MPV 10.4 fL (7.4-10.4) 12/15/24 13:21 Neut % (Auto) 69.3 % 12/15/24 13:21 Lymph % (Auto) 25.2 % 12/15/24 13:21 [place] % (Auto) 3.6 % 12/15/24 13:21 Eos % (Auto) 1.0 % 12/15/24 13:21 Baso % (Auto) 0.7 % 12/15/24 13:21 Neut # (Auto) 6.31 10^3/uL (1.8-7.7) 12/15/24 13:21 Lymph # (Auto) 2.3 10^3/uL (0.8-4.8) 12/15/24 13:21 [place] # (Auto) 0.3 10^3/uL (0.2-0.9) 12/15/24 13:21 Eos # (Auto) 0.1 10^3/uL (0.0-0.8) 12/15/24 13:21 Baso # (Auto) 0.1 10^3/uL (0.0-0.1) 12/15/24 13:21 Nucleated RBC % (auto) 0 % 12/15/24 13:21 Nucleated RBCs # 0.0 /100WBC 12/15/24 13:21 Sodium 137 mmol/L (136-145) 12/15/24 13:21 Potassium 4.0 mmol/L (3.5-5.1) 12/15/24 13:21 Chloride 102 mmol/L (98-107) 12/15/24 13:21 Carbon Dioxide 23 mmol/L (22-29) 12/15/24 13:21 Anion Gap 16.0 (5-19) 12/15/24 13:21 BUN 7 mg/dL (6-20) 12/15/24 13:21 Creatinine 0.6 mg/dL (0.5-0.9) 12/15/24 13:21 GFR Calculation 114.4 mL/min (90-130) 12/15/24 13:21 Glucose 133 mg/dL (65-115) H 12/15/24 13:21 Calculated Osmolality 284 mOsm/kg (285-295) L 12/15/24 13:21 Calcium 9.7 mg/dL (8.5-10.5) 12/15/24 13:21 Total Bilirubin 0.2 mg/dL (0.15-1.2) 12/15/24 13:21 AST 9 U/L (0-32) 12/15/24 13:21 ALT 8 U/L (0-33) 12/15/24 13:21 Alkaline Phosphatase 81 U/L (35-105) 12/15/24 13:21 Total Protein 7.4 g/dL (6.6-8.7) 12/15/24 13:21 Albumin 4.1 g/dL (3.5-5.2) 12/15/24 13:21 Globulin 3.3 g/dL (1.3-4.6) 12/15/24 13:21 HCG, Qual Negative (Negative) 12/15/24 13:21 Urine Color Yellow (Yellow) 12/15/24 12:45 Urine Appearance Clear (CLEAR) 12/15/24 12:45 Urine pH 6.0 (5-7) 12/15/24 12:45 Ur Specific [place] 1.010 (1.005-1.030) 12/15/24 12:45 Urine Protein Negative (Negative) 12/15/24 12:45 Urine Glucose (UA) Negative (Normal) 12/15/24 12:45 Urine Ketones Negative (Negative) 12/15/24 12:45 Urine Blood Negative (Negative) 12/15/24 12:45 Urine Nitrate Negative (Negative) 12/15/24 12:45 Urine Bilirubin Negative (Negative) 12/15/24 12:45 Urine Urobilinogen 0.2 mg/dL (Negative) 12/15/24 12:45 Ur Leukocyte Esterase Negative (Negative) 12/15/24 12:45 Amorphous Sediment Not Reportable 12/15/24 12:45 All radiology interpretation(s) finalized by discharge Discharge Plan Discharge Patient Disposition: Home Clinical Impression: Strain of lumbar region, Abdominal pain Condition: Stable Prescriptions: No Action hydroxyzine HCl 10 mg tablet 10 mg PO TID PRN (Reason: Pain) ibuprofen 600 mg tablet 600 mg PO Q8H PRN (Reason: pain) Qty: 30 0RF metformin 500 mg tablet PO bupropion HCl 150 mg tablet extended release 24 hr PO ibuprofen 200 mg Tablet 400 mg PO BEDTIME PRN (Reason: Pain) Mirena 20 mcg/24 hours (6 yrs) 52 mg Intrauterine Device See Rx Instructions .ROUTE .COMPLEX Rx Instructions: intrauterinely fluticasone propionate 50 mcg/actuation spray,suspension 2 spray INTRANASAL DAILY Discharge Orders: Discharge ED (Routine); Ordered 12/15/24 Ordered By: Festus Guzman Referrals: Aletha Dexter FNP [Primary Care Provider] - Discharge Diet: Usual diet Discharge Activity: Increase activity as tolerated Patient Instructions: Abdominal Pain (ED), Opioid Safety, Pain Management Activity Restrictions/Additional Instructions: Thank you for choosing [facility] for your healthcare needs today. It is very important that you follow up as instructed or that you return to the Emergency Department should you have concerns or if your condition changes or worsens in any way. You were seen in the emergency room with complaint of sided flank pain. Urine and other laboratory test did not show any acute abnormality. No acute findings on abdominal exam. test was negative. Continue to use medications previously prescribed for your back. Stand Alone Forms: Work/School Release Print Language: Sri Lankan Coding Level of Care Code ED [employer] Clerk for Jacob Wallace
[2024-12-15 13:08] LABS: Add Urine Microscopic? NO
[2024-12-15 13:15] LABS: Bilirubin Urine Negative (Negative); Blood Urine Negative (Negative); Glucose Urine UA Negative (Normal); Ketones Urine Negative (Negative); Leukocyte Esterase Urine Negative (Negative); Nitrate Urine Negative (Negative); Protein Urine Negative (Negative); Urine Appearance Clear (CLEAR); Urine Color Yellow (Yellow); Urobilinogen Urine 0.2 mg/dL (Negative)
[2024-12-15] MEDS: orphenadrine 30 mg/mL Inj 2 mL 60 MG IM (13:15)
[2024-12-15] MEDS: ketorolac 30 mg/mL INJ IVP (13:19)
[2024-12-15 13:20] LABS: Charge for UA Resulting for Rev
[2024-12-15 13:22] VITALS: BP 118/65; PULSE 80; O2SAT 99
[2024-12-15 13:27] LABS: Basophils # 0.1 10^3/uL (0.0-0.1); Basophils % 0.7 %; Eosinophils # 0.1 10^3/uL (0.0-0.8); Hematocrit 42.1 % (36-47); Lymphocytes # 2.3 10^3/uL (0.8-4.8); Lymphocytes % 25.2 %; Mean Corpuscular Hemoglobin 28.9 pg (27-33); Mean Corpuscular Volume 87.5 fl (85-98); Mean Platelet Volume 10.4 fL (7.4-10.4); Monocytes # 0.3 10^3/uL (0.2-0.9); Monocytes % 3.6 %; Neutrophils # 6.31 10^3/uL (1.8-7.7); Neutrophils % 69.3 %; Nucleated Red Blood Cells % 0 %; Platelet Count 288 10^3/cmm (157-399); Red Blood Count 4.81 10^6/uL (3.85-5.65); Red Cell Distribution Width 13.2 % (12.1-15.1); White Blood Count 9.11 10^3/uL (3.29-11.43)
[2024-12-15 13:49] LABS: Alanine Aminotransferase 8 U/L (0-33); Albumin Level 4.1 g/dL (3.5-5.2); Alkaline Phosphatase 81 U/L (35-105); Aspartate Amino Transferase 9 U/L (0-32); Blood Urea Nitrogen 7 mg/dL (6-20); Calcium 9.7 mg/dL (8.5-10.5); Carbon Dioxide 23 mmol/L (22-29); Chloride 102 mmol/L (98-107); Creatinine Clr Calc Pharmacy 143.0671; Globulin 3.3 g/dL (1.3-4.6); Glomerular Filtration Rate 114.4 mL/min (90-130); Glucose 133 mg/dL (65-115); Osmolality Calculated 284 mOsm/kg (285-295); Sodium 137 mmol/L (136-145); Total Bilirubin 0.2 mg/dL (0.15-1.2); Total Protein 7.4 g/dL (6.6-8.7)
[2024-12-15 14:42] LABS: HCG, Serum Qual Negative (Negative)
[2024-12-15 15:22] VITALS: BP 94/63; PULSE 70; O2SAT 99
== END 2024-12-15 15:24 | disposition home or self-care (01) ==
PROVIDERS: Emergency Provider Family Medicine; PCP Nurse Practitioner Family
DX: S39.012A Strain of muscle, fascia and tendon of lower back, initial encounter (principal); R10.9 Unspecified abdominal pain; Z79.84 Long term (current) use of oral hypoglycemic drugs; X58.XXXA Exposure to other specified factors, initial encounter
CPT/HCPCS: 80053; 81003; 84703; 85025; 96374; 99284; J1885; J2360

== ENCOUNTER 2025-06-29 18:44 | Emergency (ER) | payer SELFPAY ==
--- OUTSIDE RECORDS SUMMARY | 2025-06-29 18:51 | XMS_ITS | Encounter Summary ---
Author Organization [facility] Address [address] [place] [address] Care Team Providers Care Addressing Machine Operator Name Role Phone Faith Rodriguez DO Primary Care Provider [phone] Encounter Details Date Type Department Care Team (Late Contact Info) Description 06/25/2025 External Device Data [facility] ABSTRACTION Provider, Abstract NO ADDRESS ON FILE Social History Tobacco Use Types Packs/Day Years Used Date Smoking Tobacco: Every Day Cigarettes Passive Smoke Exposure: Current Smokeless Tobacco: Never Alcohol Use Standard Drinks/Week Comments No 0 (1 standard drink = 0.6 oz pur e alcohol) Comments Unknown Sex and Gender Information Value Date Recorded Sex Assigned at Not on file Legal Sex Female 2:13 AM 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 Gender Identity Not on file Sexual Orientation Not on file documented as of this encounter Plan of Treatment Upcoming Encounters Date Type Department Care Team (Late Contact Info) Description 08/27/2025 8:20 AM 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 Office Visit [facility] [place] [address] [place] [address] Manish Costello FNP [address] [place] [address] documented as of this encounter Visit Diagnoses Not on filedocumented in this encounter Additional Health Concerns Assessment Noted Time PHQ-9 Depression Total Score: 1 11/26/19 25 8:58 AM 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 documented as of this encounter Care Teams Addressing Machine Operator Relationship Specialty Start Date End Date Faith Rodriguez DO [address] [place] [address] PCP - General Family Practice 12/01/10 documented as of this encounter
--- OUTSIDE RECORDS SUMMARY | 2025-06-29 18:51 | XMS_ITS | Clinical Summary ---
Author Organization [facility] Address [address] [place] [address] Care Team Providers Care Laboratory Phlebotomist Name Role Phone MichaleFaith sandoval Primary Care Provider Allergies Active Allergy Reactions Criticality Noted Date Comments Amoxicillin Hives,Itching,Swelling High 09/02/2009 Oxycodone-Acetaminophen Hives,Itching,Swelling High 09/02/2009 Medications hydrOXYzine HCl (ATARAX) 25 mg tablet Take 1 Tablet (25 mg) by mouth every 6 hours as needed for Anxiety. 30 Tablet 06/30/2017 Active ferrous sulfate 325 mg (65 mg iron) tablet Take 1 Tablet (325 mg) by mouth daily. 30 Tablet 06/30/2017 Active ibuprofen (MOTRIN) 800 mg tablet Take 1 Tablet (800 mg) by mouth every 8 hours as needed for Pain, Mild. 30 Tablet 06/30/2017 Active sertraline (ZOLOFT) 50 mg tablet Take 1 Tablet (50 mg) by mouth daily. 30 Tablet 06/30/2017 Active HYDROmorphone (DILAUDID) 2 mg tablet Take 1 Tablet (2 mg) by mouth every 3 hours as needed for Pain, Break-Throu gh. Max Daily Amount: 16 mg 20 Tablet 06/30/2017 Active Active Problems Problem Noted Date Diagnosed Date Anxiety and depression 06/30/2017 Gestational diabetes mellitus, class A2 06/28/20 17 History of shoulder dystocia with result of fractured humerus of in prior , currently in third trimester 06/28/2017 Tobacco abuse 06/28/2017 Immunizations Immunization Administration Dates Next Due (PNEUMOVAX 23)(50 YRS UP) PN EUMOCOCCAL POLYSACCHARIDE (PPV23) 0.5 ML, IM 06/30/2017 Social History Tobacco Use Types Packs/Day Years Used Date Smoking Tobacco: Every Day Cigarettes Smokeless Tobacco: Never Alcohol Use Standard Drinks/Week Comments No 0 (1 standard drink = 0.6 oz pur e alcohol) Comments No Sex and Gender Information Value Date Recorded Sex Assigned at Not on file Legal Sex Female 7:05 AM OUTPATIENT PHYSICAL THERAPIST ASSISTANT Gender Identity Not on file Sexual Orientation Not on file Last Filed Vital Signs Vital Sign Reading Time Taken Comments Blood Pressure 132/62 06/30/2017 6:06 AM CDT Pulse 90 06/30/2017 6:06 AM CDT Temperature 36.6 C (97.9 F) 06/30/2017 6:06 AM CDT Respiratory Rate 16 06/30/2017 6:06 AM CDT Oxygen Saturation 97% 06/30/2017 6:06 AM CDT Inhaled Oxygen Concentration - - Weight 95.3 kg (210 lb) 06/28/2017 7:00 AM CDT Height 154.9 cm (5' 1 ) 06/28/2017 7:00 AM CDT Body Mass Index 39.68 06/28/2017 7:00 AM CDT Plan of Treatment Health Maintenance Due Date Last Done Comments DIABETES ANNUAL FOOT EXAM 2008 DIABETES ANNUAL RETINAL EXAM 2008 DIABETES HBA1C Q 6 MONTHS 2008 DIABETES MICROALBUMIN ANNUAL SCREEN 2008 LDL CHOLESTEROL ANNUAL 2008 DTAP/TDAP/TD VACCINES (1 - Tdap) 2009 HEPATITIS B VACCINES (1 of 3 - 19+ 3-dose series) 10/24 HPV/Cotest (21-29) 2011 HPV VACCINES (1 - 3-dose SCDM series) 2017 CERVICAL CANCER SCREENING 2020 HPV/Cotest (30-65) 2020 PAP SMEAR 2020 INFLUENZA VACCINE (#1) 2025 Preventative Visit-Managed Medicaid 01/31/202601/30 Insurance [employer]AN [facility] ENVOLVE DENTAL ENVOLVE DENTAL Advance Directives For more information, please contact: [phone] * Full Code (Latest Code Status on File) Date Activated Date Inactivated Comments 06/28/2017 4:01 PM 06/30/2017 4:32 PM * Full Code Date Activated Date Inactivated Comments 06/28/2017 7:36 AM 06/28/2017 4:01 PM Care Teams Laboratory Phlebotomist Relationship Specialty Start Date End Date Faith Rodriguez DO [address] [place] [address] PCP - General Family Practice 12/01/10
--- OUTSIDE RECORDS SUMMARY | 2025-06-29 18:51 | XMS_ITS | Encounter Summary ---
Author Organization [facility] Address [address] [place] [address] Care Team Providers Care Trashman Name Role Phone Faith Rodriguez DO Primary Care Provider Encounter Details Date Type Department Care Team (Latest Contact Info) Description 08/12/2008 Outpatient Historical [facility] Operating Room [address] [place] [address] Jose Sharma Jr., DL NO ADDRESS ON FILE Personal History of Allergy to Penicillin Social History Tobacco Use Types Packs/Day Years Used Date Smoking Tobacco: Never Assessed Comments Unknown Sex and Gender Information Value Date Recorded Sex Assigned at Not on file Legal Sex Female 7:05 AM CAP MACHINE OPERATOR Gender Identity Not on file Sexual Orientation Not on file documented as of this encounter Plan of Treatment Not on file documented as of this encounter Visit Diagnoses Diagnosis Personal history of allergy to penicillin documented in this encounter Care Teams Trashman Relationship Specialty Start Date End Date Faith Rodriguez DO [address] [place] [address] PCP - General Family Practice 12/01/10 documented as of this encounter
--- OUTSIDE RECORDS SUMMARY | 2025-06-29 18:51 | XMS_ITS | Clinical Summary ---
Author Organization [facility] Address [address] [facility] Attn: Epic Prelude ADT [place] [address] Care Team Providers Care Python Web Developer Name Role Phone Faith Rodriguez DO Primary Care Provider Allergies Active Allergy Reactions Criticality Noted Date Comments Amoxicillin Hives,Itching,Swelling High 09/02/2009 Clindamycin Hives High 05/22/2022 Oxycodone-Acetaminophen Hives,Itching,Swelling High 09/02/2009 Medications hydrOXYzine HCL (ATARAX) 25 mg tablet Take 1 Tablet (25 mg) by mouth every 6 hours as needed for Anxiety. 30 Tablet 0 7 Active levonorgestreL (MIRENA) 21 mcg/24hr (up to 8 yrs) 52 mg IUD 1 Device. 1 Active metFORMIN (GLUCOPHAGE XR) 500 mg Extended Release 24 hour tabletIndications:T ype 2 diabetes mellitus with hyperglycemia, without long-term current use of insulin ([facility]) Take 1 Tablet (500 mg) by mouth daily at bedtime. 100 Tablet 3 5 Active simvastatin (ZOCOR) 5 mg tabletIndications:M ixed hyperlipidemia Take 1 Tablet (5 mg) by mouth daily at bedtime. 100 Tablet 3 5 Active busPIRone (BUSPAR) 5 mg tabletIndications:A nxiety and depression Take 1 Tablet (5 mg) by mouth 3 times daily as needed for Anxiety. 90 Tablet 3 5 Active guanFACINE (INTUNIV) 1 mg Extended Release 24 hour tabletIndications:A dult ADHD Take 1 Tablet (1 mg) by mouth daily. 90 Tablet 4 Active diclofenac sodium (VOLTAREN) 75 mg Tablet, Delayed Release (E.C.)Indications:M bethany's neuroma of right foot,Peroneal tendinitis of left lower extremity Take 1 Tablet (75 mg) by mouth 2 times daily. 60 Tablet 11 Active Active Problems Problem Noted Date Diagnosed Date Sleep talking 06/05/2025 Xanthelasma of upper eyelids of both eyes 2024 Mixed hyperlipidemia 01/31/2025 Type 2 diabetes mellitus wit h hyperglycemia, without long-term current use of insulin 01/30/2025 Adult ADHD 01/30/2025 Anxiety and depression 06/30/2017 Tobacco abuse 06/28/2017 Resolved Problems Problem Noted Date Diagnosed Date Resolved Date History of shoulder dystocia with result of fractured humerus of infant in prior , currently in third trimester 06/28/2017 01/30/2025 Gestational diabetes mellitus, class A2 06/28/2017 01/30/2025 Encounters Date Type Department Care Team Description 06/25/2025 External Device Data STL ABSTRACTION Provider, Abstract 06/11/2025 External Device Data STL ABSTRACTION Provider, Abstract 06/05/2025 4:00 PM CDT Office Visit [facility] [address] [place] [address] Manish Costello FNP Montaño's neuroma of right foot (Primary Dx); Peroneal tendinitis of left lower extremity; Anxiety and depression; Sleep talking 05/14/2025 9:00 AM CDT Office Visit [facility] [address] [place] [address] Manish Costello FNP Type 2 diabetes mellitus with hyperglycemia, without long-term current use of insulin ([facility]) (Primary Dx); Mixed hyperlipidemia; Anxiety and depression; Xanthelasma of upper eyelids of both eyes; Adult ADHD 05/08/2025 External Device Data STL ABSTRACTION Provider, Abstract 05/07/2025 External Device Data STL ABSTRACTION Provider, Abstract 04/23/2025 External Device Data STL ABSTRACTION Provider, Abstract 04/09/2025 External Device Data STL ABSTRACTION Provider, Abstract from Last 3 Months Immunizations Immunization Administration Dates Next Due (PNEUMOVAX 23)(50 YRS UP) PN EUMOCOCCAL POLYSACCHARIDE (PPV23) 0.5 ML, IM 06/30/2017 Family History Medical History Relation Name Comments Diabetes Maternal Grandfather Heart Attack Maternal Grandfather Diabetes Maternal Grandmother Diabetes Mother Relation Name Status Comments Maternal Grandfather Maternal Grandmother Alive Mother Alive Social History Tobacco Use Types Packs/Day Years Used Date Smoking Tobacco: Every Day Cigarettes Passive Smoke Exposure: Current Smokeless Tobacco: Never Tobacco Cessation:Ready to Q uit: No; Counseling Given: Yes Alcohol Use Standard Drinks/Week Comments No 0 (1 standard drink = 0.6 oz pur e alcohol) Comments Unknown Sex and Gender Information Value Date Recorded Sex Assigned at Not on file Legal Sex Female 2:13 AM PATENT SEARCHER Gender Identity Not on file Sexual Orientation Not on file Last Filed Vital Signs Vital Sign Reading Time Taken Comments Blood Pressure 134/70 06/05/2025 4:03 PM CDT Pulse 100 06/05/2025 4:03 PM CDT Temperature 36.9 C (98.5 F) 06/05/2025 4:03 PM CDT Respiratory Rate 17 06/05/2025 4:03 PM CDT Oxygen Saturation 97% 06/05/2025 4:03 PM CDT Inhaled Oxygen Concentration - - Weight 100.5 kg (221 lb 9.6 oz) 06/05/2025 4:03 PM CDT Height 154.9 cm (5' 1 ) 06/05/2025 4:03 PM CDT Body Mass Index 41.87 06/05/2025 4:03 PM CDT Plan of Treatment Upcoming Encounters Date Type Department Care Team (Late st Contact Info) Description 08/27/2025 8:20 AM PATENT SEARCHER Office Visit [facility] [address] [place] [address] Manish Costello FNP [address] [place] [phone] Health Maintenance Due Date Last Done Comments DIABETES ANNUAL FOOT EXAM 2008 DIABETES ANNUAL RETINAL EXAM 2008 DTAP/TDAP/TD VACCINES (1 - Tdap) 2009 HEPATITIS B VACCINES (1 of 3 - 19+ 3-dose series) 10/24 HPV/Cotest (21-29) 2011 HPV VACCINES (1 - 3-dose SCDM series) 2017 CERVICAL CANCER SCREENING 2020 HPV/Cotest (30-65) 2020 PAP SMEAR 2020 INFLUENZA VACCINE (#1) 2025 10/05/2024 DIABETES HBA1C Q 6 MONTHS 08/01/2025 01/30/2025 DIABETES MICROALBUMIN ANNUAL SCREEN 01/30/202601/30 DIABETES: A1C (Auto Order) 01/30/2026 01/30/2025 LDL CHOLESTEROL ANNUAL 01/30/2026 01/30/2025 Preventative Visit- Commercial Completed 01/30/2025 Procedures Procedure Name Priority Date/Time Associated Diagnosis Comments MICROALBUMIN/CREATIN INE RATIO, RANDOM UR Routine 01/30/2025 11:16 AM CDT Type 2 diabetes mellitus with hyperglycemia, without long-term current use of insulin ([facility]) LIPID PANEL Routine 01/30/2025 11:16 AM CDT Normal routine physical examination Type 2 diabetes mellitus with hyperglycemia, without long-term current use of insulin ([facility]) HEMOGLOBIN A1C Routine 01/30/2025 11:16 AM CDT Normal routine physical examination Type 2 diabetes mellitus with hyperglycemia, without long-term current use of insulin ([facility]) from Last 3 Months or Most Recently Relevant to Health Maintenance Results * MICROALBUMIN/CREATININE RATIO, RANDOM UR (01/30/2025 11:16 AM CDT) Creatinine, Urine 39 20 - 275 mg/dL [facility] MICROALBUMIN, URINE 0.2 See Note: mg/dL [facility] Comment: Reference Range: Reference Range Not established MICROALBUMIN/CREAT RATIO, UR 5 <30 mg/g creat [facility] Comment: The ADA defines abnormalities in albumin excretion as follows: Albuminuria Category Result (mg/g creatinine) Normal to Mildly increased <30 Moderately increased 30-299 Severely increased > OR = 300 The ADA recommends that at least two of three specimens collected within a 3-6 month period be abnormal before considering a patient to be within a diagnostic category. Test Performed at: [facility] [id number] [place] [address] Lev Villafana MD Urine URINE SPECIMEN OBTAINED BY CLEAN CATCH PROCEDURE / Unknown 01/30/2025 11:16 AM CDT 01/31/2025 3:46 AM CDT Manish Costello [facility] URINE ORDERABLES Final Res ult Performing Organization Address City/[facility] Co de Phone Number [facility] [phone] [facility] [address] [place] [address] [place] [address] * (ABNORMAL) HEMOGLOBIN A1C (01/30/2025 11:16 AM CDT) HEMOGLOBIN A1C 6.7(H) <5.7 % of total Hgb [facility] Comment: For someone without known diabetes, a hemoglobin A1c value of 6.5% or greater indicates that they may have diabetes and this should be confirmed with a follow-up test. For someone with known diabetes, a value <7% indicates that their diabetes is well controlled and a value greater than or equal to 7% indicates suboptimal control. A1c targets should be individualized based on duration of diabetes, age, comorbid conditions, and other considerations. Currently, no consensus exists regarding use of hemoglobin A1c for diagnosis of diabetes for children. ESTIMATED AVERAGE GLUCOSE (MG/DL) 146 mg/dL [facility] ESTIMATED AVERAGE GLUCOSE (MMOL/L) 8.1 mmol/L [facility] Comment: Test Performed at: [facility] [address] [facility] [address] Lev Villafana MD Blood 01/30/2025 11:1 6 AM CDT 01/31/2025 5:31 AM CDT Manish Costello [facility] CHEMISTRY ORDERABLES Final Result Performing Organization Address City/State/[facility] Co de Phone Number [facility] [phone] [facility] [address] [address] [address] * (ABNORMAL) LIPID PANEL (01/30/2025 11:16 AM CDT) CHOLESTEROL 260(H) <200 mg/dL [facility] HDL 40(L) > OR = 50 mg/dL [facility] TRIGLYCERIDE 199(H) <150 mg/dL [facility] LDL CALCULATED 182(H) mg/dL (calc) [facility] Comment: Reference range: <100 Desirable range <100 mg/dL for primary prevention; <70 mg/dL for patients with CHD or diabetic patients with > or = 2 CHD risk factors. LDL-C is now calculated using the Fátima calculation, which is a validated novel method providing better accuracy than the Friedewald equation in the estimation of LDL-C. Cesar SS et al. NABILA. 2013;310(88): 7900-1929 (http://education.Nevigo/faq/MTC213) CHOL/HDL RATIO 6.5(H) <5.0 (calc) [facility] NON-HDL CHOLESTEROL 220(H) <130 mg/dL (calc) [facility] Comment: Non-HDL level > or = 220 is very high and may indicate genetic familial hypercholesterolemia (FH). Clinical assessment and measurement of blood lipid levels should be considered for all first-degree relatives of patients with an FH diagnosis. For patients with diabetes plus 1 major ASCVD risk factor, treating to a non-HDL-C goal of <100 mg/dL (LDL-C of <70 mg/dL) is considered a therapeutic option. Test Performed at: [facility] [address] [address] [address] Lev Villafana MD Blood 01/30/2025 11:1 6 AM CDT 01/31/2025 5:31 AM CDT Manish MCGUIRE CHEMISTRY ORDERABLES Final Result Performing Organization Address [facility]/State/ZIP Co de Phone Number [facility] [phone] [facility] [address] [address] [place] [address] from Last 3 Months or Most Recently Relevant to Health Maintenance Insurance SBOR PRACTITIONER ONLY Care Teams Python Web Developer Relationship Specialty Start Date End Date Faith Rodriguez DO [address] [place] [address] PCP - General Family Practice 12/01/10
[2025-06-29 18:54] VITALS: BP 142/93; PULSE 101; RESP 17; TEMP 38.5; O2SAT 98; BMI 37.8
--- NOTE | 2025-06-29 19:09 | XRR_ITS ---
PROCEDURE INFORMATION: Exam: XR Chest Exam date and time: 06/29/2025 7:31 PM Age: 34 years old Clinical indication: Cough and fever; Additional info: Fever, cough, congestion TECHNIQUE: Imaging protocol: Radiologic exam of the chest. Views: 1 view. Total images: 1 COMPARISON: 1. CR XR chest 1V portable [id number] 09/28/2021 11:53 AM 2. CR XR shoulder RT min 2V* [id number] 07/22/2023 10:06 AM FINDINGS: Limitations: Quality of examination is limited by large patient body habitus. The frontal view of the chest is taken in lordotic positioning. Lungs: Unremarkable. No consolidation. Pleural spaces: Unremarkable. No pleural effusion. No pneumothorax. Heart/Mediastinum: Unremarkable. No cardiomegaly. Bones/joints: Unremarkable. XR/XR chest 1V portable [id number] IMPRESSION: 1. No acute cardiopulmonary disease or adverse interval change radiographically. 2. Quality of examination is limited by large patient body habitus and lordotic portable chest positioning
[2025-06-29 19:45] LABS: Hematocrit 39.6 % (36-47); Hemoglobin 13.20 g/dL (11.27-16.99); Mean Corpuscular HGB Conc 33.3 g/dL (30-55); Mean Corpuscular Hemoglobin 28.6 pg (27-33); Mean Corpuscular Volume 85.7 fl (85-98); Nucleated Red Blood Cells % 0 %; Platelet Count 256 10^3/cmm (157-399); Red Blood Count 4.62 10^6/uL (3.85-5.65); White Blood Count 8.49 10^3/uL (3.29-11.43)
[2025-06-29 20:03] LABS: HCG, Serum Qual Negative (Negative)
[2025-06-29 20:12] LABS: Alanine Aminotransferase 11 U/L (0-33); Albumin Level 4.2 g/dL (3.5-5.2); Alkaline Phosphatase 85 U/L (35-105); Anion Gap 15.5 (5-19); Aspartate Amino Transferase 13 U/L (0-32); Blood Urea Nitrogen 6 mg/dL (6-20); Calcium 9.2 mg/dL (8.5-10.5); Carbon Dioxide 24 mmol/L (22-29); Chloride 97 mmol/L (98-107); Creatinine Clr Calc Pharmacy 116.1418; Globulin 3.4 g/dL (1.3-4.6); Glucose 171 mg/dL (65-115); Osmolality Calculated 278 mOsm/kg (285-295); Potassium 3.5 mmol/L (3.5-5.1); Sodium 133 mmol/L (136-145); Total Protein 7.6 g/dL (6.6-8.7)
[2025-06-29 20:13] LABS: Lactic Sepsis W/Reflex 2.0 mmol/L (0.5-2.2)
[2025-06-29 20:21] LABS: Glucose Urine UA Negative (Normal); Nitrate Urine Negative (Negative); Specific Gravity, Urine 1.007 (1.005-1.030)
[2025-06-29 20:26] LABS: Add Urine Microscopic? YES
[2025-06-29 20:30] LABS: Respiratory Syncytial Virus Ce NEGATIVE (Negative); SARS-CoV-2 PCR NEGATIVE (Negative)
--- NOTE | 2025-06-29 21:21 | ED_ITS ---
HPI - General Adult 2 General: Chief complaint: General Medical Stated complaint: Symptoms of cold, Possible spider bite on Lt. leg Time Seen by Provider: 06/29/25 19:08 History of Present Illness: Patient is a 34-year-old female who presents with two concurrent issues. First, she reports a painful lesion on her leg that developed overnight. She describes feeling a pinching burning feeling on her leg while lying down last night. Initially, she did not see anything visible, but during the night, the lesion came to a head and appears to have opened and is now draining. The patient initially thought it might be an ingrown hair but decided to seek care as the pain intensified throughout the day. Concurrently, the patient has been experiencing upper respiratory symptoms including chest congestion (primarily in the upper chest), sore throat, headache, and fever. The sore throat and fatigue began yesterday morning, with fever developing after showering, accompanied by chills. She reports productive cough with green sputum. 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 No vomiting or diarrhea reported. Related Data Home Medications ?Medication ?Instructions ?Recorded ?Confirmed ibuprofen 200 mg tablet 400 mg PO BEDTIME PRN Pain 1 11/29/20 12/01/24 levonorgestrel (Mirena) See Rx Instructions .Route . COMPLEX 09/28/21 12/01/24 hydroxyzine HCl 10 mg tablet 10 mg PO TID PRN Pain 12/01/24 fluticasone propionate 50 2 spray intranasal DAILY 02/1412/01/24 mcg/actuation nasal spray,suspension bupropion HCl 150 mg 24 hr tablet, mg PO 09/28/2406/17 extended release metformin 500 mg tablet mg PO 09/28/24 12/01/24 Previous Rx's ?Medication ?Instructions ?Recorded ibuprofen 600 mg tablet 600 mg PO Q8H PRN pain #30 t abs 05/01/22 doxycycline hyclate 100 mg tablet 100 mg PO BID 7 days #14 tabs 06/29/25 oxycodone-acetaminophen 7.5 mg-325 1 tab PO Q6H PRN pa in #7 tabs 06/29/25 mg tablet (Percocet) Allergies Allergy/AdvReac Type Severity Reaction Status Date / Time hydrocodone Allergy Mild ALGY-HIVES Verified 09/28/24 09:34 Penicillins Allergy Mild ALGY-HIVES Verified 09/28/24 09:34 clindamycin Allergy Unknown Verified 09/28/24 09:34 PFSH ED 2 PFSH: Family History Other Diabetes Hypertension Stroke Denies family history of CAD (coronary artery disease) Chronic kidney disease (CKD) Social History Smoking and tobacco/nicotine status: never used tobacco/nicotine Quit status (tobacco/nicotine): not considering quitting Second hand smoke exposure: Yes Alcohol intake: current Alcohol intake frequency: holidays/special occasions only Substance/Drug Use: never Current gender identity: Female Female Reproductive History: Spontaneous abortions: No Physical Exam 2 Const: COMMON NORMALS: no acute distress GENERAL APPEARANCE: cooperative; not ill appearing and not frail appearing HENMT: COMMON NORMALS: normocephalic, atraumatic and Normal external nose present HEAD & SCALP: normocephalic and atraumatic FACE & SINUS: normal facial exam and face symmetric NOSE: Normal external nose present Eye: COMMON NORMALS: Equal, round and reactive pupils present and EOMs intact bilaterally PUPIL: Yes Equal, round and reactive pupils present Neck/C-Spine: GENERAL: Yes trachea midline Chest: CHEST: Yes Symmetrical chest wall rise Resp: COMMON NORMALS: normal respiratory effort, No retractions, No use of accessory muscles and clear to auscultation bilaterally AUSCULTATION: clear to auscultation bilaterally Cardio: COMMON NORMALS: regular rate and regular rhythm RATE: regular rate RHYTHM: regular rhythm GI: COMMON NORMALS: Normal to inspection, nondistended, normoactive bowel sounds present Extremity: COMMON NORMALS: no pedal edema Neuro: KATHY COMA SCALE: document GCS findings Kathy coma scale eye opening: Spontaneous Kathy coma scale verbal response: Orientated [place] coma scale motor response: Obey commands [place] coma scale total score: 15 S ENSORY EXAM: Yes extremities (intact) Psych: COMMON NORMALS: speech normal SPEECH: Yes normal speech Skin: COMMON NORMALS: no rashes or lesions noted GENERAL SKIN EXAM: no rashes or lesions noted Course 2 Vital Signs: Vital signs: Vital Signs Temperature 101.3 F H 06/29/25 18:54 Pulse Rate 68 06/29/25 22:50 Respiratory Rate 19 H 06/29/25 22:50 Blood Pressure 150/82 06/29/25 22:50 Pulse Oximetry 98 06/29/25 22:50 Oxygen Delivery Me thod Room Air 06/29/25 18:54 MDM - General Adult Medical Decision Making Patient has a significant cellulitis to the lateral posterior left thigh, with some central necrosis. She had a fever 101.3 on arrival. Is broken now. Other vitals are stable. Her CBC is normal. BMP is not remarkable. Her CRP however is 130. Sed rate is only 25. Chest x-ray is nonacute. COVID flu and RSV PCR is negative. No other source of the fever found, save for cellulitis of the left posterior lateral thigh. There is no drainable abscess. She be placed on antibiotics for this. She was given doxycycline and Rocephin here. 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 This should cover a bacterial bronchitis should she have that as well. To return for worsening symptoms or signs despite treatment. Lab Data 06/29/25 19:34 06/29/25 19:34 Radiology Impressions Chest X-Ray 06/29/25 19:09 IMPRESSION: 1. No acute cardiopulmonary disease or adverse interval change radiographically. 2. Quality of examination is limited by large patient body habitus and lordotic portable chest positioning Laboratory Results WBC 8.49 10^3/uL (3.29-11.43) 06/29/25 19:34 RBC 4.62 10^6/uL (3.85-5.65) 06/29/25 19:34 Hgb 13.20 g/dL (11.27-16.99) 06/29/25 19:34 Hct 39.6 % (36-47) 06/29/25 19:34 MCV 85.7 fl (85-98) 06/29/25 19:34 MCH 28.6 pg (27-33) 06/29/25 19:34 MCHC 33.3 g/dL (30-55) 06/29/25 19:34 RDW 13.9 % (12.1-15.1) 06/29/25 19:34 Plt Count 256 10^3/cmm (157-399) 06/29/25 19:34 MPV 10.7 fL (7.4-10.4) H 06/29/25 19:34 Neut % (Auto) 83.2 % 06/29/25 19:34 Lymph % (Auto) 10.2 % 06/29/25 19:34 [place] % (Auto) 3.9 % 06/29/25 19:34 Eos % (Auto) 2.1 % 06/29/25 19:34 Baso % (Auto) 0.4 % 06/29/25 19:34 Neut # (Auto) 7.06 10^3/uL (1.8-7.7) 06/29/25 19:34 Lymph # (Auto) 0.9 10^3/uL (0.8-4.8) 06/29/25 19:34 [place] # (Auto) 0.3 10^3/uL (0.2-0.9) 06/29/25 19:34 Eos # (Auto) 0.2 10^3/uL (0.0-0.8) 06/29/25 19:34 Baso # (Auto) 0.0 10^3/uL (0.0-0.1) 06/29/25 19:34 Nucleated RBC % (auto) 0 % 06/29/25 19:34 Nucleated RBCs # 0.0 /100WBC 06/29/25 19:34 ESR 25 mm/hr (0-15) H 06/29/25 19:34 Sodium 133 mmol/L (136-145) L 06/29/25 19:34 Potassium 3.5 mmol/L (3.5-5.1) 06/29/25 19:34 Chloride 97 mmol/L (98-107) L 06/29/25 19:34 Carbon Dioxide 24 mmol/L (22-29) 06/29/25 19:34 Anion Gap 15.5 (5-19) 06/29/25 19:34 BUN 6 mg/dL (6-20) 06/29/25 19:34 Creatinine 0.7 mg/dL (0.5-0.9) 06/29/25 19:34 GFR Calculation 95.8 mL/min (90-130) 06/29/25 19:34 Glucose 171 mg/dL (65-115) H 06/29/25 19:34 Calculated Osmolality 278 mOsm/kg (285-295) L 06/29/25 19:34 Lactic Acid 2.0 mmol/L (0.5-2.2) 06/29/25 19:34 Calcium 9.2 mg/dL (8.5-10.5) 06/29/25 19:34 Total Bilirubin 0.2 mg/dL (0.15-1.2) 06/29/25 19:34 AST 13 U/L (0-32) 06/29/25 19:34 ALT 11 U/L (0-33) 06/29/25 19:34 Alkaline Phosphatase 85 U/L (35-105) 06/29/25 19:34 C-Reactive Protein 130.5 mg/L (0.0-4.9) H 06/29/25 19:34 Total Protein 7.6 g/dL (6.6-8.7) 06/29/25 19:34 Albumin 4.2 g/dL (3.5-5.2) 06/29/25 19:34 Globulin 3.4 g/dL (1.3-4.6) 06/29/25 19:34 HCG, Qual Negative (Negative) 06/29/25 19:34 Urine Color Yellow (Yellow) 06/29/25 18:57 Urine Appearance Clear (CLEAR) 06/29/25 18:57 Urine pH 6.0 (5-7) 06/29/25 18:57 Ur Specific [place] 1.007 (1.005-1.030) 06/29/25 18:57 Urine Protein Negative (Negative) 06/29/25 18:57 Urine Glucose (UA) Negative (Normal) 06/29/25 18:57 Urine Ketones Negative (Negative) 06/29/25 18:57 Urine Blood Negative (Negative) 06/29/25 18:57 Urine Nitrate Negative (Negative) 06/29/25 18:57 Urine Bilirubin Negative (Negative) 06/29/25 18:57 Urine Urobilinogen 1.0 mg/dL (Negative) 06/29/25 18:57 Ur Leukocyte Esterase Negative (Negative) 06/29/25 18:57 Urine RBC 0-2 /hpf (0-2) 06/29/25 18:57 Urine WBC 0-5 /hpf (0-5) 06/29/25 18:57 Ur Squamous Epith Cells 0-5 /hpf (0-5) 06/29/25 18:57 Amorphous Sediment Not Reportable 06/29/25 18:57 Urine Bacteria None seen /hpf (NONE) 06/29/25 18:57 Hyaline Casts 0-4 /lpf H 06/29/25 18:57 Influenza A (PCR) Negative (Negative) 06/29/25 19:46 Influenza Type B (PCR) Negative (Negative) 06/29/25 19:46 RSV (PCR) Negative (Negative) 06/29/25 19:46 SARS-CoV-2 (PCR) Negative (Negative) 06/29/25 19:46 All radiology interpretation(s) finalized by discharge Discharge Plan Discharge Patient Disposition: Home Clinical Impression: Acute febrile illness, Insect bite, Cellulitis of left thigh Condition: Stable Prescriptions: New oxycodone-acetaminophen [Percocet] 7.5-325 mg tablet 1 tab PO Q6H PRN (Reason: pain) Qty: 7 0RF doxycycline hyclate 100 mg tablet 100 mg PO BID 7 Days Qty: 14 0RF No Action hydroxyzine HCl 10 mg tablet 10 mg PO TID PRN (Reason: Pain) ibuprofen 600 mg tablet 600 mg PO Q8H PRN (Reason: pain) Qty: 30 0RF metformin 500 mg tablet PO bupropion HCl 150 mg tablet extended release 24 hr PO ibuprofen 200 mg Tablet 400 mg PO BEDTIME PRN (Reason: Pain) Mirena 20 mcg/24 hours (6 yrs) 52 mg Intrauterine Device See Rx Instructions .ROUTE .COMPLEX Rx Instructions: intrauterinely fluticasone propionate 50 mcg/actuation spray,suspension 2 spray INTRANASAL DAILY Discharge Orders: Discharge ED (Routine); Ordered 06/29/25 Ordered By: Michel Barros Patient Instructions: Cellulitis (ED), Insect Bite or Sting (ED), Opioid Safety, Pain Management, Patient Portal & Emma Instructions Activity Restrictions/Additional Instructions: Return for continued fever despite 3-4 lower doses of antibiotics, vomiting liquids or medications, worsening redness, streaking, drainage, etc. despite treatment, any other concerning symptoms. Follow-up with your doctor next week. Stand Alone Forms: Work/School Release Print Language: Yoruba Coding Level of Care Code ED Clinical Systems Analyst for Jacob Wallace
[2025-06-29] MEDS: cefTRIAXone 1,000 mg SDV 1000 MG IVP (21:58)
[2025-06-29] MEDS: sodium chloride 0.9% (100 ml) 100 ML (21:59)
[2025-06-29 22:50] VITALS: BP 150/82; PULSE 68; RESP 19; O2SAT 98
== END 2025-06-29 22:51 | disposition home or self-care (01) ==
PROVIDERS: Emergency Provider Emergency Medicine
DX: R50.9 Fever, unspecified (principal); L03.116 Cellulitis of left lower limb; W57.XXXA Bitten or stung by nonvenomous insect and other nonvenomous arthropods, initial encounter; Z11.52 Encounter for screening for COVID-19
CPT/HCPCS: 71045; 80053; 81001; 83605; 84703; 85025; 85651; 86140; 87637; 96374; 96375; 99284; J0696; J1885; J7030; J9999

== ENCOUNTER 2025-10-04 08:21 | Emergency (ER) | payer SELFPAY ==
[2025-10-04 08:21] VITALS: BP 143/94; PULSE 78; RESP 17; TEMP 36.9; O2SAT 99; BMI 37.8
--- NOTE | 2025-10-04 08:27 | ECG_ITS ---
[facility]04 Pat Name: Bharati Dawkins Department: Room: Gender: Female Patients Transporter: : 1990 Requested By: Neisha Marte Order Number: [id number] Reading MD: ANSELMO PEACOCK Measurements Intervals [place] Rate: 76 P: 43 FL: 138 QRS: 56 QRSD: 95 T: 52 QT: 371 QTc: 419 Interpretive Statements SINUS RHYTHM Compared to ECG 09/28/2021 09:50:52 ST (T wave) deviation no longer present Electronically Signed On 10-04-2025 18:29:55 COMMUNITY DEVELOPMENT WORKER by ANSELMO PEACOCK [id number]
--- NOTE | 2025-10-04 08:27 | XR_ITS ---
WS: [id number] XR chest 1V portable [id number] REASON FOR EXAM: Chest pain FINDINGS: Chest is unchanged compared to 06/29/2025. There is mild cardiomegaly. Calcified granulomatous disease bilaterally. No acute pulmonary parenchymal or pleural abnormality is identified. XR/XR chest 1V portable [id number] IMPRESSION: Stable chest with cardiomegaly. No acute abnormality.
--- NOTE | 2025-10-04 08:29 | ED_ITS ---
HPI - Chest Pain 2 General: Chief Complaint: Chest Pain Stated Complaint: resolved cp - anxiety Time Seen by Provider: 10/04/25 08:22 History of Present Illness: 34-year-old female with a history of obe sity, hypertension and hyperlipidemia who presents to the emergency room by ambulance after having had an episode of chest pain and palpitations. Says it may have been anxiety but she also had some palpitations. This has since resolved. She describes a pressure in the center of her chest. No fever. No cough. No lower extremity swelling. No known cardiac history Related Data Home Medications ?Medication ?Instructions ?Recorded ?Confirmed levonorgestrel (Mirena) See Rx Instructions .Route . COMPLEX 09/28/21 10/04/25 fluticasone propionate 50 2 spray intranasal DAILY PRN 06/27/24 10/04/25 mcg/actuation nasal allergies spray,suspension metformin 500 mg tablet 500 mg PO BEDTIME 09/28/24 1 12/05/24 diclofenac sodium 75 mg 75 mg PO BID 10/04/25 tablet,delayed release hydroxyzine HCl 25 mg tablet 25 mg PO TID PRN Pain 10/1710/04/25 Allergies Allergy/AdvReac Type Severity Reaction Status Date / Time hydrocodone Allergy Mild ALGY-HIVES Verified 09/28/24 09:34 Penicillins Allergy Mild ALGY-HIVES Verified 09/28/24 09:34 clindamycin Allergy Unknown Verified 09/28/24 09:34 Review of Systems 2 Narrative: Constitutional symptoms: Negative except as documented in HPI. Skin symptoms: Negative except as documented in HPI. Eye symptoms: Negative except as documented in HPI. ENMT symptoms: Negative except as documented in HPI. Respiratory symptoms: Negative except as documented in HPI. Cardiovascular symptoms: Negative except as documented in HPI. Gastrointestinal symptoms: Negative except as documented in HPI. Genitourinary symptoms: Negative except as documented in HPI. Musculoskeletal symptoms: Negative except as documented in HPI. Neurologic symptoms: Negative except as documented in HPI. Psychiatric symptoms: Negative except as documented in HPI. Endocrine symptoms: Negative except as documented in HPI. PFSH ED 2 PFSH: Family History Other Diabetes Hypertension Stroke Denies family history of CAD (coronary artery disease) Chronic kidney disease (CKD) Social History Smoking and tobacco/nicotine status: current every day tobacco/nicotine user (1ppd ) cigarettes Packs smoked per day: 0.5 Quit status (tobacco/nicotine): not considering quitting Second hand smoke exposure: Yes Alcohol intake: current Alcohol intake frequency: holidays/special occasions only Substance/Drug Use: never Current gender identity: Female Female Reproductive History: Spontaneous abortions: No Physical Exam 2 Narrative: EXAM NARRATIVE: General: Alert, no acute distress. Skin: Warm, dry. Head: Normocephalic, atraumatic. Neck: Supple, trachea midline. Eye: Extraocular movements are intact. Ears, nose, mouth and throat: mucosa moist. Cardiovascular: Regular, Normal peripheral perfusion. Respiratory: Lungs are clear to auscultation, respirations are non-labored, breath sounds are equal, Symmetrical chest wall expansion. Gastrointestinal: Soft, Nontender, Non distended Musculoskeletal: Normal ROM, no deformity. Neurological: Alert and oriented, No focal neurological deficit observed. Psychiatric: Cooperative, appropriate mood & affect. Course 2 Vital Signs: Vital signs: Vital Signs Temperature 98.5 F 10/04/25 08:21 Pulse Rate 63 10/04/25 10:09 Respiratory Rate 21 H 10/04/25 09:37 Blood Pressure 121/94 10/04/25 10:09 Pulse Oximetry 100 10/04/25 10:09 Oxygen Delivery Me thod Room Air 10/04/25 09:37 MDM - Chest Pain Medical Decision Making Medical decision making Patient's reason for coming to the emergency room: Chest pain Social determinants: Patient is employed. She was about to go to work when symptoms started. I reviewed the patient's medical record. History of obesity and hypertension I reviewed the patient's current home meds Metformin Alternate historians: None Differential diagnosis for patient with chest pain includes but is not limited to and based on the above HPI, review of systems and physical exam: Pneumonia. unstable angina. angina. Acute coronary syndrome / NE. Pulmonary embolism. Costochondritis / musculoskeletal. Pleurisy. Pericarditis. Esophageal spasm. Pancreatitis. Cholecystitis. Orders placed to evaluate differential diagnosis based on the above differential, HPI and physical exam EKG: Time 8:24 AM normal sinus rhythm, No ST-T changes, no ectopy, normal AR & QRS intervals, This was reviewed and interpreted by myself the ER physician at 8:27 AM Chest x-ray: No acute process. No infiltrate. No pneumothorax. This was reviewed and interpreted by myself the emergency room physician. I also reviewed the radiology report. Lab Review: Laboratory results were reviewed and interpreted by myself the emergency room physician. No leukocytosis. No anemia. No renal failure. Serial cardiac markers are negative. Assessment of risk: Level of risk: Low risk patient. Hospitalization considerations: Heart score recommends follow-up with her PCP. Clinical decision support: Heart score 0 Reexamination: Patient remained stable. No increased work of breathing. No altered mental status. No focal motor deficits. No dysrhythmias. No continued chest pain. Assessment and plan: Chest pain Palpitations - Discharged home - Discussed plan with patient. Answered any questions. - Evaluation and treatment of this problem were appropriate in the emergency setting. Lab Data 10/04/25 08:31 10/04/25 08:31 Radiology Impressions Chest X-Ray 10/04/25 08:27 IMPRESSION: Stable chest with cardiomegaly. No acute abnormality. Laboratory Results WBC 7.54 10^3/uL (3.29-11.43) 10/04/25 08:31 RBC 4.33 10^6/uL (3.85-5.65) 10/04/25 08:31 Hgb 12.40 g/dL (11.27-16.99) 10/04/25 08:31 Hct 38.2 % (36-47) 10/04/25 08:31 MCV 88.2 fl (85-98) 10/04/25 08:31 MCH 28.6 pg (27-33) 10/04/25 08:31 MCHC 32.5 g/dL (30-55) 10/04/25 08:31 RDW 14.0 % (12.1-15.1) 10/04/25 08:31 Plt Count 291 10^3/cmm (157-399) 10/04/25 08:31 MPV 10.6 fL (7.4-10.4) H 10/04/25 08:31 Neut % (Auto) 64.0 % 10/04/25 08:31 Lymph % (Auto) 28.2 % 10/04/25 08:31 Mccone % (Auto) 4.4 % 10/04/25 08:31 Eos % (Auto) 2.3 % 10/04/25 08:31 Baso % (Auto) 0.8 % 10/04/25 08:31 Neut # (Auto) 4.83 10^3/uL (1.8-7.7) 10/04/25 08:31 Lymph # (Auto) 2.1 10^3/uL (0.8-4.8) 10/04/25 08:31 Mccone # (Auto) 0.3 10^3/uL (0.2-0.9) 10/04/25 08:31 Eos # (Auto) 0.2 10^3/uL (0.0-0.8) 10/04/25 08:31 Baso # (Auto) 0.1 10^3/uL (0.0-0.1) 10/04/25 08:31 Nucleated RBC % (auto) 0 % 10/04/25 08:31 Nucleated RBCs # 0.0 /100WBC 10/04/25 08:31 Sodium 137 mmol/L (136-145) 10/04/25 08:31 Potassium 3.8 mmol/L (3.5-5.1) 10/04/25 08:31 Chloride 103 mmol/L (98-107) 10/04/25 08:31 Carbon Dioxide 23 mmol/L (22-29) 10/04/25 08:31 Anion Gap 14.8 (5-19) 10/04/25 08:31 BUN 13 mg/dL (6-20) 10/04/25 08:31 Creatinine 0.7 mg/dL (0.5-0.9) 10/04/25 08:31 GFR Calculation 95.8 mL/min (90-130) 10/04/25 08:31 Glucose 199 mg/dL (65-115) H 10/04/25 08:31 Calculated Osmolality 290 mOsm/kg (285-295) 10/04/25 08:31 Calcium 8.8 mg/dL (8.5-10.5) 10/04/25 08:31 Magnesium 2.0 mg/dL (1.7-2.3) 10/04/25 08:31 Total Bilirubin 0.2 mg/dL (0.15-1.2) 10/04/25 08:31 AST 8 U/L (0-32) 10/04/25 08:31 ALT 7 U/L (0-33) 10/04/25 08:31 Alkaline Phosphatase 81 U/L (35-105) 10/04/25 08:31 Troponin T Baseline < 6 ng/L (0-10) 10/04/25 08:31 Troponin T 60 Minute < 6.0 ng/L (0-10) 10/04/25 09:10 Delta Troponin T 0 ABS# (0-10) 10/04/25 09:10 Total Protein 6.6 g/dL (6.6-8.7) 10/04/25 08:31 Albumin 4.1 g/dL (3.5-5.2) 10/04/25 08:31 Globulin 2.5 g/dL (1.3-4.6) 10/04/25 08:31 TSH 1.86 uIU/mL (0.27-4.20) 10/04/25 08:31 Urine Color Yellow (Yellow) 10/04/25 08:39 Urine Appearance Clear (CLEAR) 10/04/25 08:39 Urine pH 5.5 (5-7) 10/04/25 08:39 Ur Specific [place] 1.006 (1.005-1.030) 10/04/25 08:39 Urine Protein Negative (Negative) 10/04/25 08:39 Urine Glucose (UA) Trace (Normal) H 10/04/25 08:39 Urine Ketones Negative (Negative) 10/04/25 08:39 Urine Blood Negative (Negative) 10/04/25 08:39 Urine Nitrate Negative (Negative) 10/04/25 08:39 Urine Bilirubin Negative (Negative) 10/04/25 08:39 Urine Urobilinogen 0.2 mg/dL (Negative) 10/04/25 08:39 Ur Leukocyte Esterase Negative (Negative) 10/04/25 08:39 Urine RBC 0-2 /hpf (0-2) 10/04/25 08:39 Urine WBC 0-5 /hpf (0-5) 10/04/25 08:39 Ur Squamous Epith Cells 0-5 /hpf (0-5) 10/04/25 08:39 Amorphous Sediment Not Reportable 10/04/25 08:39 Urine Bacteria None seen /hpf (NONE) 10/04/25 08:39 Hyaline Casts 0-4 /lpf H 10/04/25 08:39 All radiology interpretation(s) finalized by discharge Clincial Decision Support The following clinical decision support tools were used to aid in care of the patient HEART Score -> History: Slightly Suspicous, EKG: Normal, Age: Less than 45 yrs, Risk Factors: No Risk Factors Known, Troponin: Baseline Trop <16 ng/L. Resulting HEART Score: 0. Discharge Plan Discharge Patient Disposition: Home Clinical Impression: Chest pain, Palpitations Condition: Stable Prescriptions: No Action metformin 500 mg tablet 500 mg PO BEDTIME Mirena 20 mcg/24 hours (6 yrs) 52 mg Intrauterine Device See Rx Instructions .ROUTE .COMPLEX Rx Instructions: 1 device intrauterinely every 6 years fluticasone propionate 50 mcg/actuation spray,suspension 2 spray INTRANASAL DAILY PRN (Reason: allergies) diclofenac sodium 75 mg tablet,delayed release (DR/EC) 75 mg PO BID hydroxyzine HCl 25 mg tablet 25 mg PO TID PRN (Reason: Pain) Discharge Orders: Discharge ED (Routine); Ordered 10/04/25 Ordered By: Neisha Brunson Patient Instructions: Chest Pain (ED), Opioid Safety, Pain Management, Patient Portal & Emma Instructions Activity Restrictions/Additional Instructions: Thank you for choosing [facility] for your healthcare needs today. You have been screened and evaluated and felt safe for discharge. Health conditions do change or evolve sometimes and as such it is important that you follow up with your Primary Doctor to be re checked, 3-5 days is a general good time frame for follow up. You are always welcome to return to the ED for re assessment if your symptoms are worsening or you have new concerns Stand Alone Forms: Work/School Release Print Language: Maltese Coding Level of Care Code ED Client Services Manager for Chg Fwd Heart Score HEART Score Components History: Slightly Suspicous EKG: Normal Age: Less than 45 yrs Risk Factors: No Risk Factors Known Troponin: Baseline Trop <16 ng/L HEART Score RESULT HEART Score: 0
[2025-10-04 08:36] LABS: Hematocrit 38.2 % (36-47); Hemoglobin 12.40 g/dL (11.27-16.99); Mean Corpuscular HGB Conc 32.5 g/dL (30-55); Mean Corpuscular Hemoglobin 28.6 pg (27-33); Mean Corpuscular Volume 88.2 fl (85-98); Nucleated Red Blood Cells % 0 %; Platelet Count 291 10^3/cmm (157-399); Red Blood Count 4.33 10^6/uL (3.85-5.65); White Blood Count 7.54 10^3/uL (3.29-11.43)
[2025-10-04 08:45] LABS: Glucose Urine UA Trace (Normal); Nitrate Urine Negative (Negative); Specific Gravity, Urine 1.006 (1.005-1.030)
[2025-10-04 08:58] LABS: Troponin(5th) Baseline < 6 ng/L (0-10)
[2025-10-04 09:01] VITALS: BP 138/86; PULSE 22; RESP 20; O2SAT 99
[2025-10-04 09:05] LABS: Alanine Aminotransferase 7 U/L (0-33); Albumin Level 4.1 g/dL (3.5-5.2); Alkaline Phosphatase 81 U/L (35-105); Anion Gap 14.8 (5-19); Aspartate Amino Transferase 8 U/L (0-32); Blood Urea Nitrogen 13 mg/dL (6-20); Calcium 8.8 mg/dL (8.5-10.5); Carbon Dioxide 23 mmol/L (22-29); Chloride 103 mmol/L (98-107); Creatinine Clr Calc Pharmacy 116.1418; Globulin 2.5 g/dL (1.3-4.6); Glucose 199 mg/dL (65-115); Magnesium 2.0 mg/dL (1.7-2.3); Osmolality Calculated 290 mOsm/kg (285-295); Potassium 3.8 mmol/L (3.5-5.1); Sodium 137 mmol/L (136-145); Thyroid Stimulating Hormone 1.86 uIU/mL (0.27-4.20); Total Protein 6.6 g/dL (6.6-8.7)
--- NOTE | 2025-10-04 09:27 | ECG_ITS ---
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
[2025-10-04 09:37] VITALS: BP 133/90; PULSE 61; RESP 21; O2SAT 100
[2025-10-04 10:09] VITALS: BP 121/94; PULSE 63; O2SAT 100
== END 2025-10-04 10:20 | disposition home or self-care (01) ==
PROVIDERS: Emergency Provider Emergency Medicine; PCP Nurse Practitioner Family
DX: R07.9 Chest pain, unspecified (principal); R00.2 Palpitations; Z79.84 Long term (current) use of oral hypoglycemic drugs; F17.210 Nicotine dependence, cigarettes, uncomplicated; I10 Essential (primary) hypertension; E78.5 Hyperlipidemia, unspecified
CPT/HCPCS: 36415; 71045; 80053; 81001; 83735; 84443; 84484; 85025; 93005; 99285

== ENCOUNTER → 2025-10-11 10:12 | Outpatient (BNVA) | payer MEDICAID, SELFPAY | PROVIDERS: PCP Nurse Practitioner Family; Visit Provider Thoracic Surgery (Cardiothoracic Vascular Surgery) | DX: Z09 Encounter for follow-up examination after completed treatment for conditions other than malignant neoplasm (principal); Z87.2 Personal history of diseases of the skin and subcutaneous tissue | CPT/HCPCS: 99212 ==